=== PATIENT | female | born 2005 | race African-American/Black ===

== ENCOUNTER 2023-11-21 17:03 | Inpatient (IN) ==
--- NOTE | 2023-11-21 17:16 | Emergency Department Note ---
Impression & Plan Suicide gesture, Alcohol intoxication, Metabolic acidosis, Acute respiratory alkalosis, Drug overdose, intentional ED Provider Note NAME: ANNELISE ZAMBRANO AGE: 18 SEX: F : 2005 ARRIVES VIA: Ambulance INFORMANT: EMS, the police ED PROVIDER(S): Brnedan West DO CHIEF COMPLAINT: Altered mental status HPI: The patient is a 18-year-old female who presented to the emergency department for suicide attempt. The patient was found with a note stating her intentions to harm herself. She indicated that she had taken her Prozac as well as drank a significant amount of alcohol. Prior to arrival the patient was treated with IM Ativan because she was having episodes of tonic-clonic activity not seizure related. The patient would not answer any questions. I am unable to assess orientation at this time. I am unable to assess intent at this time. Additional history was obtained from the prehospital personnel who spoke to the patient's significant other ROS: See above HPI for pertinent positives & negatives. A total of 10 systems reviewed and were otherwise negative. PAST MEDICAL HISTORY: See Below PAST SURGICAL HISTORY: See Below FAMILY HISTORY: See Below SOCIAL HISTORY: See Below HOME MEDICATIONS: See Below ALLERGIES: See Below VITALS: See Below PHYSICAL EXAMINATION: GENERAL: The patient is not answering questions. She is lying on the bed and has intermittent episodes of " flopping around" EYES: The conjunctivae are clear. The pupils are round and reactive. EARS, NOSE, MOUTH AND THROAT: The nose is without any evidence of any deformity. NECK: The neck is nontender and supple. RESPIRATORY: Normal respiratory effort is noted there is no evidence of wheezing rhonchi or rales CARDIOVASCULAR: Regular rate and rhythm noted there no murmurs rubs or gallops normal S1 normal S2. GASTROINTESTINAL: The abdomen is soft. Abdomen is nontender. MUSCULOSKELETAL/EXTREMITIES: There is no evidence of gross deformity full range of motion is noted in the hips and shoulders. SKIN: There is no obvious evidence of any rash. There are no petechiae, pallor or cyanosis noted. NEUROLOGIC: Patient does not follow commands. She does not respond to verbal commands. She does localize pressure. Patellar tendon reflexes are 2+ bilaterally. PSYCH: Unable to assess at this time MEDICAL DECISION MAKING: The patient is a 18-year-old female who presented to the emergency department after a suicidal gesture. The patient is not usually compliant with her medications. It is possible she took multiple doses of 20 mg Prozac. The bottle was filled on October 08, 2023. There were 40 tablets left. It does not appear that she took them appropriately so there could be more than 6 tablets ingested this evening. The patient also drank alcohol. She left a suicide note indicating her intentions to harm herself. The patient was treated with IV fluids in the emergency department. She was also treated with IV Ativan. Her condition was discussed with the [facility]. They recommended continued IV Ativan as long as she was exhibiting signs of psychomotor agitation. There is no obvious seizure but she did keep having psychomotor agitation. She got Ativan prior to arrival as well as in the emergency department. I discussed patient's laboratory and radiographic studies with the on-call [facility] hospitalist. They have agreed to evaluate the patient in the emergency department for further management and disposition. Triage Nursing notes reviewed. Prior medical records reviewed Vital Signs: reviewed and remarkable for tachycardia. Differential diagnosis: Overdose, toxicologic, infection, hypoglycemia, electrolyte abnormalities, cardiac sources, intracerebral event, neurologic, trauma, as well as other pathologies. ER treatment provided: See below Diagnostics interpreted by me: ECG: EKG was obtained in the emergency department. My interpretation is sinus tachycardia at 119 bpm. Poor baseline was noted. There is no ectopy. QTc was 410 ms. QRS duration is 86 ms. Cardiac Monitoring: An order was placed for continuous cardiac monitoring. The monitor shows a rate of 104 bpm with sinus tachycardia Laboratory studies: As stated above and show below. Imaging studies: See below. Radiographic imaging was reviewed by myself Consultation(s): The patient's case was discussed with the Poison Control Center. They recommend benzodiazepines to treat tachycardia. I discussed this case with Dr Ramesh who was commissioned sales associate for the [place] [facility] group ED COURSE: Procedures: none Critical Care: I have personally spent greater than 55 minutes of critical care time in the direct management of this patient. This includes bedside care, interpretation of diagnostic studies, and testing, discussion with consultants, patient, and family members, and other required patient management activities. This 55 minutes is in excess of all separately billable procedures. Past Med/Surg History Social History Smoking Status: Unknown if ever smoked Preferred Language: Thai Allergies Allergies Allergy/AdvReac Type Severity Reaction Status Date / Time No Known Allergies Allergy Verified 11/21/23 18:18 Home Meds Home Medications Medication Instructions Recorded Confirmed fluoxetine 10 mg tablet 0 mg PO DAILY 11/21/23 11/21/23 Results & Data (ED) Vital Signs Vital Signs - 24 hr 11/21/23 17:15 11/21/23 17:26 11/21/23 17:30 Temperature 37.8 C H Temperature Source Rectal Pulse Rate 96 H 131 H 127 H Pulse Rate from SpO2 Sensor 129 H Respiratory Rate 23 21 Respiratory Effort / Characteristics Non-Labored Spontaneous Respiratory Depth Normal Blood Pressure 128/81 111/65 Blood Pressure Mean 96 80 Pulse Oximetry 97 94 Oxygen Delivery Method Room Air Room Air Sepsis Recent Fever Within 48 Hours No Sepsis New/Unexplained Change in Mental Status N/A Sepsis Action Taken by Nursing No Action Required 11/21/23 17:57 11/21/23 18:00 11/21/23 18:00 Temperature Temperature Source Pulse Rate 113 H 115 H Pulse Rate from SpO2 Sensor 111 H 119 H Respiratory Rate 24 24 Respiratory Effort / Characteristics Respiratory Depth Blood Pressure 108/62 95/44 L 95/44 L Blood Pressure Mean 77 61 67 Pulse Oximetry 99 96 Oxygen Delivery Method Room Air Room Air Sepsis Recent Fever Within 48 Hours Sepsis New/Unexplained Change in Mental Status Sepsis Action Taken by Nursing 11/21/23 18:15 11/21/23 18:30 11/21/23 18:45 Temperature Temperature Source Pulse Rate 104 H 114 H 96 H Pulse Rate from SpO2 Sensor 104 H 113 H 97 H Respiratory Rate 17 24 17 Respiratory Effort / Characteristics Respiratory Depth Blood Pressure 101/61 99/65 L 107/62 Blood Pressure Mean 74 76 77 Pulse Oximetry 98 96 99 Oxygen Delivery Method Room Air Room Air Room Air Sepsis Recent Fever Within 48 Hours Sepsis New/Unexplained Change in Mental Status Sepsis Action Taken by Nursing 11/21/23 19:00 11/21/23 19:16 11/21/23 19:30 Temperature 37.2 C Temperature Source Oral Pulse Rate 103 H 100 H Pulse Rate from SpO2 Sensor 98 H Respiratory Rate 21 22 Respiratory Effort / Characteristics Respiratory Depth Blood Pressure 112/57 L 99/59 L Blood Pressure Mean 69 71 Pulse Oximetry 100 99 Oxygen Delivery Method Room Air Room Air Sepsis Recent Fever Within 48 Hours Sepsis New/Unexplained Change in Mental Status Sepsis Action Taken by Retirement Medications Current Medication List: was personally reviewed by [place] Laboratory Data Attestation: I reviewed the patient's lab results. 11/21/23 17:10 11/21/23 17:10 Lab Results 11/21/23 11/21/23 11/21/23 Range/Units 17:10 17:12 17:19 WBC 7.48 (4.8-10.8) K/ul RBC 4.84 (4.20-5.40) M/uL Hgb 12.2 (12.0-16.0) g/dl POC Hgb 13.3 (12.0-16.0) g/dl Hct 38.4 (37.0-47.0) % POC Hct 39 (37-47) % MCV 79.3 L (80.0-100.0) fL MCH 25.2 (25.0-34.0) pg MCHC 31.8 L (32.0-36.0) g/dL RDW Std Deviation 42.0 (36.4-46.3) fL RDW Coeff of Kim 14.6 H (11.5-14.5) % Plt Count 373 (130-400) K/uL MPV 10.1 (9.4-12.4) fL Immature Gran % (Auto) 0.3 % Neut % (Auto) 63.6 % Lymph % (Auto) 27.7 % [place] % (Auto) 7.4 % Eos % (Auto) 0.5 % Baso % (Auto) 0.5 % Neut # (Auto) 4.76 (1.40-6.50) K/uL Lymph # (Auto) 2.07 (1.20-3.40) K/uL [place] # (Auto) 0.55 (0.11-0.59) K/uL Eos # (Auto) 0.04 (0.00-0.50) K/uL Baso # (Auto) 0.04 (0.00-0.20) K/uL Immature Gran # (Auto) 0.02 (0.01-0.20) K/uL PT 11.4 (9.0-12.0) Seconds INR 1.0 (0.9-1.1) APTT 27 (21-31) Seconds PTT Ratio 1.0 ABG pH (7.35-7.45) ABG pCO2 (35-46) mmHg ABG pO2 (80-95) mmHg ABG HCO3 (19-24) mmol/L ABG O2 Saturation (90-95) % ABG Base Excess (-9-1.8) mEq/L Aro[place] Test (Pos) Oxygen Given POC Sodium 136 (135-144) mmol/L Sodium 133 L (136-145) mmol/L POC Potassium 3.3 (3.3-5.0) mmol/L Potassium 3.3 L (3.5-5.1) mmol/L POC Chloride 103 (101-112) mmol/L Chloride 102 (98-107) mmol/L Carbon Dioxide 14 L (21-32) mmol/L POC Total CO2 15 L (24-31) mmol/L Anion Gap 17 H (3-11) POC Anion Gap 23.0 (16-25) mmol/L POC BUN 9 (7-18) mg/dl BUN 11 (6-23) mg/dl Creatinine 0.71 (0.6-1.2) mg/dl POC Creatinine 0.9 mg/dl Est Cr Clr Drug Dosing 97.8 ml/min Est GFR ( Amer) 142.1 ml/min Est GFR (Non-Af Amer) 122.6 ml/min BUN/Creatinine Ratio 15.5 (10-20) Glucose 166 H (70-99(Fasting)) mg/dl POC Glucose (other) 172 H (70-99) mg/dl Lactate 8.5 H* (0.4-2.0) mmol/L Calcium 9.5 (8.6-10.3) mg/dl POC Ioniz Calcium Kristyn 1.20 mmol/l Magnesium 2.2 (1.7-2.4) mg/dl Total Bilirubin 0.6 (0.2-1.0) mg/dl AST 12 L (13-39) U/L ALT 8 (7-52) U/L Alkaline Phosphatase 56 (34-104) U/L Total Creatine Kinase 63 (26-192) U/L Troponin I High Sens < 2.3 (0-14) pg/ml Total Protein 8.2 (6.0-8.3) gm/dl Albumin 4.9 (3.4-5.0) gm/dl Globulin 3.3 (2.5-4.0) gm/dl Albumin/Globulin Ratio 1.5 (0.9-2) Lipase 7 L (11-82) U/L HCG, Qual Negative (Negative) Urine Color Yellow Urine Appearance Clear (Clear) Urine pH 6.0 (4.5-7.5) Ur Specific [place] 1.018 (1.000-1.030) Urine Protein Negative (Negative) Urine Glucose (UA) 2+ H (Negative) Urine Ketones 1+ H (Negative) Urine Blood Negative (Negative) Urine Nitrite Negative (Negative) Urine Bilirubin Negative (Negative) Urine Urobilinogen Negative (Negative) Ur Leukocyte Esterase Trace H (Negative) Urine WBC (Auto) 1-5 (0-5) /hpf Urine RBC (Auto) 0-4 (0-4) /hpf U Hyaline Cast (Auto) 1-5 (0-5) /lpf U Epithel Cells (Auto) >30 H (0-5) /lpf Urine Bacteria (Auto) Negative (Negative) Salicylates < 3.0 L (3.0-30) mg/dl Urine Opiates Screen Neg (Neg) Ur Methadone, Qual Neg (Neg) Acetaminophen < 3 L (10-30) ug/ml Urine Barbiturates Neg (Neg) Ur Phencyclidine (PCP) Neg (Neg) U Amphetamin/Meth Scrn Neg (Neg) MDMA (Ecstasy) Screen Neg (Neg) U Benzodiazepines Scrn Neg (Neg) Ur Cocaine Metabolite Neg (Neg) U Marijuana (THC) Screen Neg (Neg) Ethyl Alcohol mg/dL 109.6 H (<10.0) mg/dl SARS-CoV-2, RNA, NAAT (NEGATIVE) 11/21/23 11/21/23 11/21/23 Range/Units 17:28 17:35 19:22 WBC (4.8-10.8) K/ul RBC (4.20-5.40) M/uL Hgb (12.0-16.0) g/dl POC Hgb (12.0-16.0) g/dl Hct (37.0-47.0) % POC Hct (37-47) % MCV (80.0-100.0) fL MCH (25.0-34.0) pg MCHC (32.0-36.0) g/dL RDW Std Deviation (36.4-46.3) fL RDW Coeff of Kim (11.5-14.5) % Plt Count (130-400) K/uL MPV (9.4-12.4) fL Immature Gran % (Auto) % Neut % (Auto) % Lymph % (Auto) % [place] % (Auto) % Eos % (Auto) % Baso % (Auto) % Neut # (Auto) (1.40-6.50) K/uL Lymph # (Auto) (1.20-3.40) K/uL [place] # (Auto) (0.11-0.59) K/uL Eos # (Auto) (0.00-0.50) K/uL Baso # (Auto) (0.00-0.20) K/uL Immature Gran # (Auto) (0.01-0.20) K/uL PT (9.0-12.0) Seconds INR (0.9-1.1) APTT (21-31) Seconds PTT Ratio ABG pH 7.33 L (7.35-7.45) ABG pCO2 25 L (35-46) mmHg ABG pO2 108 H (80-95) mmHg ABG HCO3 13 L (19-24) mmol/L ABG O2 Saturation 98.5 H (90-95) % ABG Base Excess -10.9 L (-9-1.8) mEq/L Aroldo Test Pos (Pos) Oxygen Given ROOM AIR POC Sodium (135-144) mmol/L Sodium (136-145) mmol/L POC Potassium (3.3-5.0) mmol/L Potassium (3.5-5.1) mmol/L POC Chloride (101-112) mmol/L Chloride (98-107) mmol/L Carbon Dioxide (21-32) mmol/L POC Total CO2 (24-31) mmol/L Anion Gap (3-11) POC Anion Gap (16-25) mmol/L POC BUN (7-18) mg/dl BUN (6-23) mg/dl Creatinine (0.6-1.2) mg/dl POC Creatinine mg/dl Est Cr Clr Drug Dosing ml/min Est GFR ( Amer) ml/min Est GFR (Non-Af Amer) ml/min BUN/Creatinine Ratio (10-20) Glucose (70-99(Fasting)) mg/dl POC Glucose (other) (70-99) mg/dl Lactate 4.3 H* (0.4-2.0) mmol/L Calcium (8.6-10.3) mg/dl POC Ioniz Calcium Kristyn mmol/l Magnesium (1.7-2.4) mg/dl Total Bilirubin (0.2-1.0) mg/dl AST (13-39) U/L ALT (7-52) U/L Alkaline Phosphatase (34-104) U/L Total Creatine Kinase (26-192) U/L Troponin I High Sens (0-14) pg/ml Total Protein (6.0-8.3) gm/dl Albumin (3.4-5.0) gm/dl Globulin (2.5-4.0) gm/dl Albumin/Globulin Ratio (0.9-2) Lipase (11-82) U/L HCG, Qual (Negative) Urine Color Urine Appearance (Clear) Urine pH (4.5-7.5) Ur Specific [place] (1.000-1.030) Urine Protein (Negative) Urine Glucose (UA) (Negative) Urine Ketones (Negative) Urine Blood (Negative) Urine Nitrite (Negative) Urine Bilirubin (Negative) Urine Urobilinogen (Negative) Ur Leukocyte Esterase (Negative) Urine WBC (Auto) (0-5) /hpf Urine RBC (Auto) (0-4) /hpf U Hyaline Cast (Auto) (0-5) /lpf U Epithel Cells (Auto) (0-5) /lpf Urine Bacteria (Auto) (Negative) Salicylates (3.0-30) mg/dl Urine Opiates Screen (Neg) Ur Methadone, Qual (Neg) Acetaminophen (10-30) ug/ml Urine Barbiturates (Neg) Ur Phencyclidine (PCP) (Neg) U Amphetamin/Meth Scrn (Neg) MDMA (Ecstasy) Screen (Neg) U Benzodiazepines Scrn (Neg) Ur Cocaine Metabolite (Neg) U Marijuana (THC) Screen (Neg) Ethyl Alcohol mg/dL (<10.0) mg/dl SARS-CoV-2, RNA, NAAT NEGATIVE (NEGATIVE) Administered Medications Lactated Ringer's (Lr) 1,000 mls @ 999 mls/hr IV .Q1H1M ONE Stop: 11/21/23 20:30 Last Infusion: 11/21/23 19:40 Dose: 999 mls/hr Documented By: Admin: 11/21/23 19:40 Dose: 999 mls/hr Documented By: NALINI Discontinued Medications Sodium Chloride (Nss) 1,000 mls @ 999 mls/hr IV .Q1H1M CORI Stop: 11/21/23 18:15 Last Infusion: 11/21/23 18:22 Dose: Infused Documented By: Admin: 11/21/23 17:23 Dose: 999 mls/hr Documented By: KIARRA Sodium Chloride (Nss) 1,000 mls @ 999 mls/hr IV .Q1H1M ONE Stop: 11/21/23 19:10 Last Infusion: 11/21/23 19:11 Dose: Infused Documented By: Infusion: 11/21/23 18:27 Dose: 0 mls/hr Documented By: Admin: 11/21/23 18:14 Dose: 999 mls/hr Documented By: KIARRA Lactated Ringer's (Lr) 1,000 mls @ 999 mls/hr IV .Q1H1M ONE Stop: 11/21/23 19:20 Last Infusion: 11/21/23 19:16 Dose: Infused Documented By: Admin: 11/21/23 18:32 Dose: 999 mls/hr Documented By: KIARRA Lorazepam (Lorazepam 1 Mg/1 Ml Syr Ed Inj Use) 1 mg IV ONE STA Stop: 11/21/23 17:38 Last Admin: 11/21/23 17:45 Dose: 1 mg Documented By: KIARRA Imaging Data Attestation: I personally reviewed and interpreted this imaging study as follows: My Impression: 1 view chest x-ray was obtained in the emergency department. My interpretation is no free air or definite infiltrate, final report below Radiologist's Impression: Chest X-Ray 11/21/23 17:08 XR chest 1V portable HISTORY: Altered mental status. COMPARISON: None. FINDINGS: The lungs are clear. Cardiac silhouette is normal in size. No pleural effusions. No pneumothorax. IMPRESSION: No acute process. ACT 112: Negative or not required by law. Electronically signed by: Luis Rangel M.D. 11/21/2023 5:33 PM Discharge Plan Visit Data Chief Complaint: Overdose (Intentional) ED Provider: Brendan West Discharge Problem: Suicide gesture, Alcohol intoxication, Metabolic acidosis, Acute respiratory alkalosis, Drug overdose, intentional Patient Disposition: Being Evaluated by Hospitalist Forms Stand Alone Forms: My [facility], Suicide Prevention Resources Prescriptions Prescriptions: No Action fluoxetine [Prozac] 10 mg Tablet 0 mg PO DAILY Rx Instructions: PT UNSURE OF STRENGTH, UNABLE TO VERIFY. FROM EMS--"TOOK POSSIBLY 6 TABS". Referrals Referrals: PCP,NO [Primary Care Provider] - Discharge Problem: Suicide gesture Qualifiers: Encounter type: initial encounter Qualified Code(s): X83.8XXA - Intentional self-harm by other specified means, initial encounter Alcohol intoxication Qualifiers: Complication of substance-induced condition: uncomplicated Qualified Code(s): F 10.920 - Alcohol use, unspecified with intoxication, uncomplicated Drug overdose, intentional Qualifiers: Encounter type: initial encounter Qualified Code(s): T50.902A - Poisoning by unspecified drugs, medicaments and biological substances, intentional self-harm, initial encounter
[2023-11-21] MEDS: SODIUM CHLORIDE 0.9% 1,000 ML IV SCH (17:23)
[2023-11-21 17:25] LABS: iSTAT Creatinine 0.9 mg/dl; iSTAT Hemoglobin 13.3 g/dl (12.0-16.0); iSTAT Ionized Calcium 1.2 mmol/l; iSTAT Potassium 3.3 mmol/L (3.3-5.0)
[2023-11-21 17:26] LABS: Basophils # (auto) 0.04 K/uL (0.00-0.20); Basophils % (auto) 0.5 %; Eosinophils # (auto) 0.04 K/uL (0.00-0.50); Eosinophils % (auto) 0.5 %; Hematocrit (blood only) 38.4 % (37.0-47.0); Hemoglobin 12.2 g/dl (12.0-16.0); Immature Granulocytes # (auto) 0.02 K/uL (0.01-0.20); Immature Granulocytes % (auto) 0.3 %; Lymphocytes # (auto) 2.07 K/uL (1.20-3.40); Lymphocytes % (auto) 27.7 %; Mean Corpuscular Hemoglobin 25.2 pg (25.0-34.0); Mean Corpuscular Hgb Conc 31.8 g/dL (32.0-36.0); Mean Corpuscular Volume 79.3 fL (80.0-100.0); Mean Platelet Volume 10.1 fL (9.4-12.4); Monocytes # (auto) 0.55 K/uL (0.11-0.59); Monocytes % (auto) 7.4 %; Neutrophils # (auto) 4.76 K/uL (1.40-6.50); Neutrophils % (auto) 63.6 %; Platelet Count 373 K/uL (130-400); RDW Coefficient of Variation 14.6 % (11.5-14.5); Red Blood Count 4.84 M/uL (4.20-5.40); White Blood Count 7.48 K/ul (4.8-10.8)
[2023-11-21 17:31] LABS: Appearance Urine Clear (Clear); Bacteria Urine Automated Negative (Negative); Bilirubin Urine Negative (Negative); Blood Urine Negative (Negative); Color Urine Yellow; Epithelial Cell Urine Auto >30 /lpf (0-5); Glucose Urine UA 2+ (Negative); Ketones Urine 1+ (Negative); Leukocyte Esterase Urine Trace (Negative); Nitrite Urine Negative (Negative); Protein Urine Negative (Negative); RBC Urine Automated 0-4 /hpf (0-4); Specific Gravity Urine 1.018 (1.000-1.030); Urobilinogen Urine Negative (Negative)
--- NOTE | 2023-11-21 17:34 | XRay Report ---
XR chest 1V portable HISTORY: Altered mental status. COMPARISON: None. FINDINGS: The lungs are clear. Cardiac silhouette is normal in size. No pleural effusions. No pneumot horax. IMPRESSION: No acute process. ACT 112: Negative or not required by law. Electronically signed by: Luis Rangel M.D. 11/21/2023 5:33 PM
[2023-11-21 17:38] LABS: Pregnancy Test, Serum Negative (Negative)
[2023-11-21 17:41] LABS: Acetaminophen < 3 ug/ml (10-30); Salicylate < 3.0 mg/dl (3.0-30)
[2023-11-21 17:44] LABS: Alanine Aminotransferase 8 U/L (7-52); Albumin Globulin Ratio 1.5 (0.9-2); Albumin Level 4.9 gm/dl (3.4-5.0); Alkaline Phosphatase 56 U/L (34-104); Anion Gap 17 (3-11); Aspartate Aminotransferase 12 U/L (13-39); BUN Creatinine Ratio 15.5 (10-20); Bilirubin,Total 0.6 mg/dl (0.2-1.0); Blood Urea Nitrogen 11 mg/dl (6-23); Calcium 9.5 mg/dl (8.6-10.3); Carbon Dioxide 14 mmol/L (21-32); Chloride 102 mmol/L (98-107); Creatine Kinase 63 U/L (26-192); Creatinine Clr Calc Pharmacy 97.8 ml/min; Est GFR (African American) 142.1 ml/min; Est GFR (Non-African American) 122.6 ml/min; Globulin 3.3 gm/dl (2.5-4.0); Glucose 166 mg/dl (70-99(Fasting)); Lipase 7 U/L (11-82); Magnesium 2.2 mg/dl (1.7-2.4); Potassium 3.3 mmol/L (3.5-5.1); Sodium 133 mmol/L (136-145); Total Protein 8.2 gm/dl (6.0-8.3)
[2023-11-21 17:45] LABS: Base Excess ABG -10.9 mEq/L (-9-1.8); HCO3 ABG 13 mmol/L (19-24); Oxygen Saturation ABG 98.5 % (90-95); PCO2 ABG 25 mmHg (35-46); PO2 ABG 108 mmHg (80-95); pH ABG 7.33 (7.35-7.45)
[2023-11-21] MEDS: LORazepam 1 MG/1 ML SYR ED Inj Use IV STA (17:45)
[2023-11-21 17:46] LABS: Allen Test Pos (Pos)
[2023-11-21 17:50] LABS: Troponin I High Sensitivity < 2.3 pg/ml (0-14)
[2023-11-21 17:54] LABS: Partial Thromboplastin Time 27 Seconds (21-31); Prothrombin Time 11.4 Seconds (9.0-12.0)
[2023-11-21 17:57] LABS: Amphetamines+Metham, Urine Neg (Neg); Barbiturates, Urine Neg (Neg); Benzodiazepine, Urine Neg (Neg); Cocaine, Urine Neg (Neg); MDMA (Ecstacy), Urine Neg (Neg); Marijuana, Urine Neg (Neg); Methadone, Urine Neg (Neg); Opiate, Urine Neg (Neg); Phencyclidine, Urine Neg (Neg)
[2023-11-21] MEDS: SODIUM CHLORIDE 0.9% 1,000 ML IV ONE (18:14)
[2023-11-21] MEDS: LACTATED RINGER'S 1,000 ML IV ONE ×2 (18:32→19:40)
[2023-11-21] MEDS ORDERED: Ativan IV Alcohol Withdrawal--Active Protocol IV PRN (19:40)
[2023-11-21] MEDS ORDERED: LORazepam 3 MG in SYRINGE 1.5 ML IV PRN (19:40)
--- NOTE | 2023-11-21 19:58 | History & Physical Report ---
Date of Service November 21, 2023 Assessment & Plan (1) Drug overdose, intentional: Plan: -Admit to the PCU on tele and pulse oximetry -Currently stable and non-toxic appearing -Presented to the ED via EMS after her boyfriend found her unconscious with a suicide note next to her. -Concerns that she took up to 40-50 tabs of prozac and an unknown amount of alcohol -Patient will need to be monitored closely moving forward for signs/symptoms so Serotonin syndrome -Continue to monitor on tele, will obtain ECG on admission -Will start AWSS protocol to be used to dose ativan for her psychomotor agitation -Currently receiving her 2nd liter of LR >Patient has had a total of 3L IV fluid since arrival -Continue maintenance IV fluids until patient can safely eat/drink -Suicide precautions, Seizure precautions -Strict NPO until she is alert enough to safely eat -AM CBC, CMP, mag, PT/INR (2) Metabolic acidosis: Plan: -Patient was found to have an elevated anion gap metabolic acidosis with r espiratory alkalosis -Likely due to her significant lactate elevation of 8 on arrival -Repeat lactate down to 4.3 after receiving 3L IV fluids in the ED -Currently receiving her 2nd liter of LR on admission -Will continue light maintenance fluids after until lactate is WNL -Will repeat another lactate in 2 hours (3) Suicide gesture: Plan: -Suicide precautions ordered -Psychiatry consulted (4) Alcohol intoxication: Plan: -Alcohol level of 109 on arrival -Unsure of her drinking history, will need to monitor for withdrawal -Will start AWSS protocol for now to treat side effects of overdose and any possible alcohol withdrawal (5) Hypokalemia: Plan: -Potassium of 3.3 on arrival -Mag is WNL -Will give 3 bags of 10 meq IV KCL now -Continue to monitor on tele -Monitor am potassium level Plan The patient was discussed with Dr. Loaiza at the time fo the admission History of Present Illness Chief Complaint: Intentional overdose Primary Care Provider: NO PCP Emilia is a 18 year old female with a PMH significant for Depression who presented to the [facility] via EMS on 11/21/23 for reported intentional overdose of Prozac and alcohol intoxication. Per the ED staff, the patient was reported to have not been taking her Prozac consistently. Police found her bottle which was initially filled in September for 90 tablets. The patient had 40 tablets left when they were counted on scene. It is unknown how much alcohol she ingested. The patient received 1mg IV ativan in route by EMS. On arrival she was noted to be tachycardic with with HR in the 130's, mildly hypotensive at 95/54, but otherwise stable. Labs were significant for an ABG pH of 7.33, pCO2 of 25, pO2 of 108, bicarb level of 13, lactate of 8, AG of 17 with bicarb of 14, and alcohol level of 109. Chest xray was negative for acute findings. The rest of her urine drug panel including salicylate and acetaminophen levels were negative. The patient was give a total of 2L NSS, 1L LR, and 1 mg IV ativan prior to admission. At the time of the exam the patient was lying in bed, still having intermittent jerking movements of the upper and lower extremities. She will open her eyes when you speak to her and follow commands but will not speak. There was no family of friends in the room during my exam. The ED staff spoke with Poison control who recommend continued monitoring on telemetry, IV fluid hydration, and use of benzodiazepines for agitation/psychomotor agitation. Please refer to Dr. Loaiza's attestation for any changes to the treatment plan Allergies Allergy/AdvReac Type Severity Reaction Status Date / Time No Known Allergies Allergy Verified 11/21/23 18:18 Home Medications Medication Instructions Recorded Confirmed Type fluoxetine 10 mg tablet 0 mg PO DAILY 11/21/23 11/21/23 History Past Med/Surg History Medical History (Updated 11/22/23 @ 16:19 by Roxy Gonzalez PA-C) Suicide gesture Social History Smoking Status: Unknown if ever smoked Second Hand Exposure: No; Do You Dip or Chew Tobacco: No; Tobacco Cessation Education Requested by Patient: No Hx Alcohol Use: Yes Alcohol type: beer, wine and hard liquor Hx Substance Use: No Preferred Language: Canadian Communication Ability: Effective Mechanical Service Representative Required: No Beliefs That Will Affect Care: None Current Living Situation: Family Other Information That Helps Us Care for You: No Feels Safe at Home: Yes Safety Concerns: Feels Safe At This Time Assistive Devices: None Physical Exam Physical Exam: Physical Exam: General: In no acute distress, appears fatigued but non-toxic HEENT: Normocephalic, atraumatic, no scleral icterus, pupils around round, symmetrical, and reactive to light, dry mucus membranes, trachea midline, no thyromegaly Chest/Pulm: No respiratory distress, symmetrical chest expansion, clear breat h sounds throughout Cardiac: tachycardic rate, regular rhythm, no murmurs noted Abdomen: Negative for ascites and bruising, normoactive bowel sounds, soft, patient was without grimacing or guarding during abdominal palpation Musculoskeletal: Patient moves lower extremities voluntarily when asked, no acute trauma on exam, intermittent muscular jerking noted Extremities: Radial, dorsalis pedis, and posterior tibial pulses are intact and symmetrical, no edema noted in the BL LE's Skin: Warm, dry, no rashes , lesions, or scars noted Neuro: Alert but will not answer orientation questions, no focal defects, patient will not cooperate with CN testing but BL pupils are round, symmetrical and reactive to light, patient does have ocular clonus BL, no facial droop, tongue/uvula deviation, moves extremities voluntarily but will also have in termittent, involuntary muscle twitching, positive clonus in the BL lower extremities, no tremors noted Psych: No acute distress, not currently agitated or aggressive Results & Data Results & Data Vital Signs (Past 12 Hours) Vital Signs Temp Pulse Resp BP Pulse Ox O2 Del Method 11/21/23 19:30 37.2 C 11/21/23 19:16 100 H 22 99/59 L 99 Room Air 11/21/23 19:00 103 H 21 112/57 L 100 Room Air 11/21/23 18:45 96 H 17 107/62 99 Room Air 11/21/23 18:30 114 H 24 99/65 L 96 Room Air 11/21/23 18:15 104 H 17 101/61 98 Room Air 11/21/23 18:00 95/44 L 11/21/23 18:00 115 H 24 95/44 L 96 Room Air 11/21/23 17:57 113 H 24 108/62 99 Room Air 11/21/23 17:30 127 H 21 111/65 94 Room Air 11/21/23 17:26 131 H 11/21/23 17:15 37.8 C H 96 H 23 128/81 97 Room Air Laboratory Results Abnormal lab results 11/21/23 11/21/23 11/21/23 Range/Units 17:10 17:12 17:19 MCV 79.3 L (80.0-100.0) fL MCHC 31.8 L (32.0-36.0) g/dL RDW Coeff of Kim 14.6 H (11.5-14.5) % ABG pH (7.35-7.45) ABG pCO2 (35-46) mmHg ABG pO2 (80-95) mmHg ABG HCO3 (19-24) mmol/L ABG O2 Saturation (90-95) % ABG Base Excess (-9-1.8) mEq/L Sodium 133 L (136-145) mmol/L Potassium 3.3 L (3.5-5.1) mmol/L Carbon Dioxide 14 L (21-32) mmol/L POC Total CO2 15 L (24-31) mmol/L Anion Gap 17 H (3-11) Glucose 166 H (70-99(Fasting)) mg/dl POC Glucose (other) 172 H (70-99) mg/dl Lactate 8.5 H* (0.4-2.0) mmol/L AST 12 L (13-39) U/L Lipase 7 L (11-82) U/L Urine Glucose (UA) 2+ H (Negative) Urine Ketones 1+ H (Negative) Ur Leukocyte Esterase Trace H (Negative) U Epithel Cells (Auto) >30 H (0-5) /lpf Salicylates < 3.0 L (3.0-30) mg/dl Acetaminophen < 3 L (10-30) ug/ml Ethyl Alcohol mg/dL 109.6 H (<10.0) mg/dl 11/21/23 11/21/23 Range/Units 17:35 19:22 MCV (80.0-100.0) fL MCHC (32.0-36.0) g/dL RDW Coeff of Kim (11.5-14.5) % ABG pH 7.33 L (7.35-7.45) ABG pCO2 25 L (35-46) mmHg ABG pO2 108 H (80-95) mmHg ABG HCO3 13 L (19-24) mmol/L ABG O2 Saturation 98.5 H (90-95) % ABG Base Excess -10.9 L (-9-1.8) mEq/L Sodium (136-145) mmol/L Potassium (3.5-5.1) mmol/L Carbon Dioxide (21-32) mmol/L POC Total CO2 (24-31) mmol/L Anion Gap (3-11) Glucose (70-99(Fasting)) mg/dl POC Glucose (other) (70-99) mg/dl Lactate 4.3 H* (0.4-2.0) mmol/L AST (13-39) U/L Lipase (11-82) U/L Urine Glucose (UA) (Negative) Urine Ketones (Negative) Ur Leukocyte Esterase (Negative) U Epithel Cells (Auto) (0-5) /lpf Salicylates (3.0-30) mg/dl Acetaminophen (10-30) ug/ml Ethyl Alcohol mg/dL (<10.0) mg/dl Diagnostic Findings Abnormal lab results 11/21/23 11/21/23 11/21/23 Range/Units 17:10 17:12 17:19 MCV 79.3 L (80.0-100.0) fL MCHC 31.8 L (32.0-36.0) g/dL RDW Coeff of Kim 14.6 H (11.5-14.5) % ABG pH (7.35-7.45) ABG pCO2 (35-46) mmHg ABG pO2 (80-95) mmHg ABG HCO3 (19-24) mmol/L ABG O2 Saturation (90-95) % ABG Base Excess (-9-1.8) mEq/L Sodium 133 L (136-145) mmol/L Potassium 3.3 L (3.5-5.1) mmol/L Carbon Dioxide 14 L (21-32) mmol/L POC Total CO2 15 L (24-31) mmol/L Anion Gap 17 H (3-11) Glucose 166 H (70-99(Fasting)) mg/dl POC Glucose (other) 172 H (70-99) mg/dl Lactate 8.5 H* (0.4-2.0) mmol/L AST 12 L (13-39) U/L Lipase 7 L (11-82) U/L Urine Glucose (UA) 2+ H (Negative) Urine Ketones 1+ H (Negative) Ur Leukocyte Esterase Trace H (Negative) U Epithel Cells (Auto) >30 H (0-5) /lpf Salicylates < 3.0 L (3.0-30) mg/dl Acetaminophen < 3 L (10-30) ug/ml Ethyl Alcohol mg/dL 109.6 H (<10.0) mg/dl 11/21/23 11/21/23 Range/Units 17:35 19:22 MCV (80.0-100.0) fL MCHC (32.0-36.0) g/dL RDW Coeff of Kim (11.5-14.5) % ABG pH 7.33 L (7.35-7.45) ABG pCO2 25 L (35-46) mmHg ABG pO2 108 H (80-95) mmHg ABG HCO3 13 L (19-24) mmol/L ABG O2 Saturation 98.5 H (90-95) % ABG Base Excess -10.9 L (-9-1.8) mEq/L Sodium (136-145) mmol/L Potassium (3.5-5.1) mmol/L Carbon Dioxide (21-32) mmol/L POC Total CO2 (24-31) mmol/L Anion Gap (3-11) Glucose (70-99(Fasting)) mg/dl POC Glucose (other) (70-99) mg/dl Lactate 4.3 H* (0.4-2.0) mmol/L AST (13-39) U/L Lipase (11-82) U/L Urine Glucose (UA) (Negative) Urine Ketones (Negative) Ur Leukocyte Esterase (Negative) U Epithel Cells (Auto) (0-5) /lpf Salicylates (3.0-30) mg/dl Acetaminophen (10-30) ug/ml Ethyl Alcohol mg/dL (<10.0) mg/dl ECG Additional Comments: Will obtain at the time of the admission Code Status & VTE Plan Code Status Full code VTE Prophylaxis Plan VTE Prophylaxis will be ordered: Yes Supervising Physician Co-Signing Physician Notes Attending addendum: I have physically seen this patient, have supervised the ARMANDO's activities, and agree with the H&P unless as otherwise noted. Assessment and Plan: Intentional drug overdose/suicide gesture- Admitting to PCU Took excessive amounts of her Prozac, plus was drinking alcohol Alcohol level 109.6 on admission Main physical exam finding is intermittent twitching Has received 3 L IV fluids from the ED Suicide precautions One-on-one observation Follow serial CBC with differential, chemistry profile, magnesium and coagulation studies Consult psychiatry Alcohol intoxication- Alcohol level 109.6 AWSS protocol with IV Ativan, which should also help the intermittent tremors associated with Prozac/alcohol intake Hypokalemia- Potassium 3.3 on admission Replace with IV fluids and recheck laboratories in a.m. PG Care Time/CCT Total # of Minutes Spent Total Time Spent with Patient: Total time spent is greater than 50% in coordination of care (as documented) at patient's floor/unit and/or counseling patient: [place] [address] INT INP/OBS CARE 3/75MIN Patient Type New Medical Decision Making High Complexity Diagnoses Drug overdose, intentional T50.902A Encounter type: initial encounter Metabolic acidosis E87.20 Suicide gesture X83.8XXA Encounter type: initial encounter Alcohol intoxication F10.920 Complication of substance-induced condition: uncomplicated Hypokalemia E87.6 (1) Drug overdose, intentional Encounter type: initial encounter Qualified Code(s): T50.902A - Poisoning by unspecified drugs, medicaments and biological substances, intentional self-harm, initial encounter (3) Suicide gesture Encounter type: initial encounter Qualified Code(s): X83.8XXA - Intentional self-harm by other specified means, initial encounter (4) Alcohol intoxication Complication of substance-induced condition: uncomplicated Qualified Code(s): F10.920 - Alcohol use, unspecified with intoxication, uncomplicated
[2023-11-21] MEDS: POTASSIUM CHLORIDE / WTR 10 MEQ/100 ML PLCT IV SCH (20:58)
[2023-11-21] MEDS: LACTATED RINGER'S 1,000 ML IV SCH (20:58)
[2023-11-21] MEDS: LORazepam 2 MG in SYRINGE 1 ML IV PRN (20:58)
[2023-11-22 04:52] LABS: Basophils # (auto) 0.04 K/uL (0.00-0.20); Basophils % (auto) 0.8 %; Eosinophils # (auto) 0.05 K/uL (0.00-0.50); Hematocrit (blood only) 29.3 % (37.0-47.0); Hemoglobin 9.4 g/dl (12.0-16.0); Immature Granulocytes # (auto) 0.01 K/uL (0.01-0.20); Immature Granulocytes % (auto) 0.2 %; Lymphocytes # (auto) 1.49 K/uL (1.20-3.40); Lymphocytes % (auto) 28.7 %; Mean Corpuscular Hemoglobin 25.4 pg (25.0-34.0); Mean Corpuscular Hgb Conc 32.1 g/dL (32.0-36.0); Mean Corpuscular Volume 79.2 fL (80.0-100.0); Mean Platelet Volume 9.9 fL (9.4-12.4); Monocytes # (auto) 0.41 K/uL (0.11-0.59); Monocytes % (auto) 7.9 %; Neutrophils # (auto) 3.19 K/uL (1.40-6.50); Neutrophils % (auto) 61.4 %; Platelet Count 250 K/uL (130-400); RDW Coefficient of Variation 14.9 % (11.5-14.5); RDW Standard Deviation 42.5 fL (36.4-46.3); White Blood Count 5.19 K/ul (4.8-10.8)
[2023-11-22 05:07] LABS: Alanine Aminotransferase 5 U/L (7-52); Albumin Globulin Ratio 1.5 (0.9-2); Albumin Level 3.4 gm/dl (3.4-5.0); Alkaline Phosphatase 43 U/L (34-104); Anion Gap 3 (3-11); Aspartate Aminotransferase 9 U/L (13-39); BUN Creatinine Ratio 9.7 (10-20); Bilirubin,Total 0.3 mg/dl (0.2-1.0); Blood Urea Nitrogen 6 mg/dl (6-23); Calcium 8.2 mg/dl (8.6-10.3); Carbon Dioxide 23 mmol/L (21-32); Chloride 109 mmol/L (98-107); Est GFR (African American) > 150.0 ml/min; Est GFR (Non-African American) 129.8 ml/min; Globulin 2.3 gm/dl (2.5-4.0); Glucose 83 mg/dl (70-99(Fasting)); Magnesium 1.8 mg/dl (1.7-2.4); Potassium 4.1 mmol/L (3.5-5.1); Sodium 135 mmol/L (136-145); Total Protein 5.7 gm/dl (6.0-8.3)
[2023-11-22] MEDS: DESTROY THIS MEDICATION ONE (07:05)
--- NOTE | 2023-11-22 11:51 | Psychiatric Consultation ---
Date of Consultation November 22, 2023 Impression / Recommendations Impression This is a 18-year-old adopted female who has been under some significant stressors (see above). I do not know anything about family history because of her adopted status. Sounds like she has been having difficulty launching into adulthood and had a recent break-up with a boyfriend who has been cheating on her. She has a history of depression and had recently started fluoxetine and felt that it was somewhat helpful but had not reached its full effect probably. She came into our hospital on a mental health warrant by the police but is willing to sign in voluntarily to the psychiatric unit when she is medically stabilized. I believe the patient is still at very high risk of suicide and requires psychiatric hospitalization, but she is willing to come in voluntarily at this time. (1) Major depressive disorder, single episode, severe without psychotic features: (2) Suicide attempt by drug ingestion: (3) Alcohol use disorder: Plan 1. We will continue to follow the patient while she is being medically treated and stabilized. 2. Once she is medically stabilized, she will need to be admitted to a psychiatric hospital. She prefers to do that locally, but parents would prefer for her to be hospitalized locally. It is too early to know what will be available once she is medically stable. 3. We will not be restarting the fluoxetine right away and it is not clear if we will continue it or not. We will decide that later. For now, we will not use any psychiatric medications until she is been stable for a little while. 4. She understands that there is still work to be done and I encouraged her to take part in the therapeutic milieu on the psychiatric unit, attend groups and activities, maintain good hygiene, and try not to isolate. 5. Discharge planning will include outpatient medication management and individual therapy. Today I spent about 100 minutes on the case. This included meeting with the patient, meeting with parents, meeting with the roommate, discussing the case with AXEL Gonzalez, discussion with the mental health liaison, and documentation. Psych History Identifying Data Emilia is a 18 yo adopted AA female currently living in [place] in an apartment with 3 roommates. She was brought in emergently to the ED on the evening of 11/21/23 after an overdose of fluoxetine in a suicide attempt. Chief Complaint "I overdosed on pills." History of Present Illness Today I met with the patient and the parents. I also spoke with AXEL Gonzalez who is working with the patient medically. Patient tells me that she overdosed on her fluoxetine yesterday in the early afternoon. She is not sure exactly how many she took but it was "a lot." Physically, she is feeling somewhat better. She describes feeling a little bit dissociated and odd, but she has been able to get up and use the bathroom and is eating and drinking. She cannot identify initially that there was any big stress that caused the overdose. She lives here in [place] in an apartment with 3 roommates. 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 Later during the conversation, she revealed to me that she had a recent break-up with a boyfriend. They had initially broken up back in August and then were back together for a little while and then finally broke up about a week ago. Mother revealed later on that he had cheated on her as well and that she had felt somehow at fault. She says that she is sexually active but is using protection. She is not worried that she is . She is not involved in any organized activities or amish. She is doing online schooling through the [employer] studying business. She does have some supportive friends and family members. She has no major medical issue s and no legal issues going on. Parents bring up other stressors as well. She is adopted and -Citizen Of [place] living with a white family. That has been somewhat difficult for her. Parents feel that they have been pressuring her too much to move into adulthood. They also mention that she has been pretty isolative in her apartment and is not as close to her roommates that she would like to be. Patient says that her sleep has been poor with initial and middle insomnia. There is been no nightmares. Appetite is normal. She describes her mood is anxious. She denies anhedonia. Energy has been okay. She says her concentration is normal. She describes some guilt and feels like she is not doing enough for the people in her life. She does feel somewhat hopeless. She cannot really say what led to her overdose and it sounds like she was pretty much "on autopilot" and impulsively did this. She denies any homicidal thoughts. She has a history of self-harm back in high school but none recently. She denies any prior suicide attempts. There is no history of any trauma or abuse. She denies any auditory or visual hallucinations. No ideas of reference. She vapes nicotine and occasionally will drink alcohol, but it sounds like it is rare. She denies any marijuana use or any other illicit substance use. There is no history of any manic episodes. Past Psychiatric History Previous Psych History: She has a history of depression but no other past diagnoses that I am aware of. Outpatient Services: She was receiving the fluoxetine from an online provider. She currently does not have a therapist locally but has 1 where her family lives but has not been s eeing them lately. Previous Psych Admissions: None Past Medication Trials: Fluoxetine is the only medication she is ever been on and she started that in September this year. Allergies Allergy/AdvReac Type Severity Reaction Status Date / Time No Known Allergies Allergy Verified 11/21/23 18:18 Home Medications Medication Instructions Recorded Confirmed Type fluoxetine 10 mg tablet 0 mg PO DAILY 11/21/23 11/21/23 History Patient History Medical History (Updated 11/22/23 @ 12:15 by Judson Riley Jr, MD) Suicide gesture Social History Smoking Status: Unknown if ever smoked Second Hand Exposure: No; Do You Dip or Chew Tobacco: No; Tobacco Cessation Education Requested by Patient: No Hx Alcohol Use: Yes Alcohol type: beer, wine and hard liquor Hx Substance Use: No Preferred Language: Belgian Communication Ability: Effective Pinion Sorter Required: No Beliefs That Will Affect Care: None Current Living Situation: Family Other Information That Helps Us Care for You: No Feels Safe at Home: Yes Safety Concerns: Feels Safe At This Time Assistive Devices: None Physical Exam Psychiatric: Patient was alert and oriented x 3. She was clean and well-groomed wearing a hospital gown. Eye contact was fair. Speech was normal other than a vocal tic that she says is new since the overdose. Mood was "anxious." Affect was restricted. Thought process was logical and just a bit goal-directed. There was no evidence of any hallucinations or delusions. Patient denied any suicidal or homicidal thoughts. Memory was good; she knew her date of , the president of [facility], and the capital [facility]. Concentration was good; she could spell the word world backwards easily. No abnormal movements were seen. Gait was not evaluated. Insight and judgment are impaired. Vital Signs (Past 24 Hours): Last Vital Signs Temp 36.7 C 11/22/23 00:43 Pulse 73 11/22/23 10:15 Resp 26 H 11/22/23 10:15 BP 109/82 11/22/23 10:15 Pulse Ox 99 11/22/23 10:15 O2 Del Method Room Air 11/22/23 06:58 Exam Statement: Physical exam was performed today by AXEL Gonzalez. Other than the vocal tic, there were no issues that came up in the physical exam. Review of Systems Patient denied any cold or flu. No headache or fever. She is having some mild blurriness in her vision and vertigo, but no other problems with eyes, ears, nose, teeth, or swallowing. No pain or swelling in their neck. No wheezing, coughing, or shortness of breath. No chest pain, racing heartbeat, or irregular heart rate. No diarrhea, upset stomach, or constipation. No dysuria, problems emptying their bladder, initiating a urine stream, or hematuria. No skin lesions. No concerns about an STD. No breast tenderness, lumps, or milk production. No muscle weakness, numbness, or tingling. She feels shaky. No broken bones. No problems with their joints. No problems with their feet. No bleeding problems. Her last menstrual cycle started just over a month ago. She has not noticed a connection between her mood and her cycle. Results & Data (PSY) Laboratory Results A CBC this morning had a normal white blood cell count, low hemoglobin at 9.4, low hematocrit of 29.3, MCV low at 79.2. Platelets are normal. Yesterday, PT and INR were normal. This morning a CMP had a low sodium at 135, chloride high at 109, and calcium low at 8.2. Yesterday, potassium was slightly low at 3.3 but is normal at this morning. Anion gap was 17 yesterday but normal at 3 today. Yesterday, a lactate was elevated at 2.8. Yesterday, creatine kinase was normal. ALT and AST were both low. hCG was negative. Urinalysis showed 2+ glucose and 1+ ketones and trace leukocyte esterase. There were epithelial cells in the urine. Salicylate was negative acetaminophen was negative urine drug screen was negative alcohol was 109.6. COVID was negative. Diagnostic Findings A chest x-ray yesterday afternoon was normal. Medications Administered Lorazepam 2 mg/ Syringe 2 mls @ 2 mls/min IV UD PRN; Protocol PRN Reason: EtOH Withdrawal AWSS Score 8,9 Stop: 12/21/23 19:39 Last Admin: 11/21/23 20:58 Dose: 2 mls/min Documented By: JASSI Coding Level of Care Code 49093 [facility] Intl Hosp Care l 3 Diagnoses Major depressive disorder, single episode, severe without psychotic features F32.2 Suicide attempt by drug ingestion T50.902A Alcohol use disorder F10.90 Time Spent (min) 100
--- NOTE | 2023-11-22 12:09 | Hospitalist Progress Note ---
Date of Service November 22, 2023 Assessment & Plan (1) Drug overdose, intentional: Plan: -Currently stable and non-toxic appearing -Presented to the ED via EMS after her boyfriend found her unconscious with a suicide note next to her. -Concerns that she took up to 40-50 tabs of prozac and an unknown amount of alcohol -Patient will need to be monitored closely moving forward for signs/symptoms so Serotonin syndrome -EKG:NSR, qtc 453 -Will start AWSS protocol to be used to dose ativan for her psychomotor agitation -Received 3L LR -Suicide precautions, Seizure precautions - Patient on a 302 Warrant - notify psych when medically cleared -AM CBC, CMP, (2) Suicide gesture: Plan: -Suicide precautions ordered -Psychiatry consulted (3) Alcohol intoxication: Plan: -Alcohol level of 109 on arrival -Continue AWSS protocol for now to treat side effects of overdose and any possible alcohol withdrawal (4) Hypokalemia: Plan: -Potassium of 3.3 on arrival - repeat 4.1 today Recheck CMP am (5) Metabolic acidosis: Plan: -Patient was found to have an elevated anion gap metabolic acidosis with respiratory alkalosis -Likely due to her significant lactate elevation of 8 on arrival --> 4.3 --> 2.8 with IV FLuids Improving (6) Toxic metabolic encephalopathy: Plan: Toxic metabolic encephalopathy -present on admission, now improving Plan Dispo: continued inpatient stay Dvt proh: low risk DIscussed case with Dr. Riley - Psychiatry. Family updated at bedside Admission and Anticipated Discharge Date Admission Date: November 21, 2023 Subjective Patient resting in bed, mother friend and ex-boyfriend present at bedside - patient allows me to talk with them in the room. Patient reports she has no idea how many pills she took yesterday. Denies suicidal thoughts at the present. Has felt lightheaded when getting up to the bathroom and requiring assistance. Denies diaphoresis. Good appetite Mother reports that involuntary movements has improved overnight. Review of Systems Review of Systems: All systems reviewed & are unremarkable except as noted in Subjective Physical Exam Physical Exam: General: NAD, resting in bed, VS as above HEENT: PEERL, vocal tick Resp: normal respiratory effort, lungs clear to auscultation CV: RRR, no murmur, Abd: normal bowel sounds, non tender, no hepatosplenomegaly Extremities: Moves all extremities, no edema Results & Data Results & Data Vital Signs (Past 12 Hours) Vital Signs Temp Pulse Pulse Resp BP BP Pulse Ox 11/22/23 10:15 73 26 H 99 11/22/23 10:15 109/82 11/22/23 10:00 67 21 100 11/22/23 10:00 124/82 11/22/23 09:46 75 22 100 11/22/23 09:46 130/75 11/22/23 09:30 119/85 11/22/23 09:30 88 18 100 11/22/23 09:15 66 15 98 11/22/23 09:15 113/81 11/22/23 09:00 111/73 11/22/23 09:00 65 98 11/22/23 08:45 69 14 98 11/22/23 08:45 114/76 11/22/23 08:30 118/79 11/22/23 08:30 63 16 98 11/22/23 08:15 61 19 99 11/22/23 08:15 117/73 11/22/23 08:00 115/68 11/22/23 08:00 68 17 100 11/22/23 07:45 97 H 15 93 11/22/23 07:45 114/73 11/22/23 07:30 67 13 100 11/22/23 07:30 120/85 11/22/23 07:15 64 14 99 11/22/23 07:15 99/65 L 11/22/23 07:06 73 11/22/23 07:00 73 16 98 11/22/23 07:00 109/66 11/22/23 06:58 69 20 106/66 98 11/22/23 06:45 67 14 98 11/22/23 06:45 67 14 106/66 98 11/22/23 06:30 66 14 98 11/22/23 06:30 66 14 111/73 98 11/22/23 06:15 64 20 98 11/22/23 06:15 63 18 115/78 98 11/22/23 06:00 63 18 98 11/22/23 06:00 118/74 11/22/23 05:45 80 19 100 11/22/23 05:45 80 19 116/78 100 11/22/23 05:30 65 13 100 11/22/23 05:30 65 13 115/67 100 11/22/23 05:15 67 14 97/67 L 98 11/22/23 05:15 67 14 98 11/22/23 05:00 78 13 97 11/22/23 05:00 78 13 112/72 97 11/22/23 04:45 73 15 103/68 97 11/22/23 04:45 73 15 97 11/22/23 04:30 74 15 105/71 97 11/22/23 04:30 74 15 97 11/22/23 04:15 99/66 L 11/22/23 04:15 71 14 96 11/22/23 04:00 67 15 96 11/22/23 04:00 67 15 99/66 L 96 11/22/23 03:45 65 14 98 11/22/23 03:45 109/76 11/22/23 03:30 66 13 99 11/22/23 03:30 66 13 108/71 99 11/22/23 03:15 72 19 100 11/22/23 03:15 72 19 110/70 100 11/22/23 03:00 82 13 100/70 97 11/22/23 02:47 11/22/23 02:45 74 15 106/69 98 11/22/23 02:30 74 15 93/65 L 97 11/22/23 02:15 71 17 111/70 99 11/22/23 02:00 74 15 103/64 98 11/22/23 01:45 76 16 95/62 L 97 11/22/23 01:30 78 16 98/66 L 97 11/22/23 01:15 76 16 98/63 L 97 11/22/23 01:00 102/67 11/22/23 01:00 72 10 L 97 11/22/23 00:45 81 14 99 11/22/23 00:45 114/82 11/22/23 00:43 36.7 C 11/22/23 00:30 112/80 11/22/23 00:30 85 18 98 11/22/23 00:15 80 100/68 97 11/22/23 00:15 83 16 97 11/22/23 00:15 100/68 Pulse Ox O2 Del Method O2 Del Method 11/22/23 00:15 Room Air 11/22/23 00:15 Room Air 11/22/23 00:15 Laboratory Results CBC and chemistry reviewed PG Care Time/CCT Total # of Minutes Spent Total Time Spent with Patient: Total time spent is greater than 50% in coordination of care (as documented) at patient's floor/unit and/or counseling patient: Coding Level of Care Code 98036 SUB INP/OBS CARE 3/50MIN Diagnoses Drug overdose, intentional T50.902A Encounter type: initial encounter Suicide gesture X83.8XXA Encounter type: initial encounter Alcohol intoxication F10.920 Complication of substance-induced condition: uncomplicated Hypokalemia E87.6 Metabolic acidosis E87.20 Toxic metabolic encephalopathy G92.8 (1) Drug overdose, intentional Encounter type: initial encounter Qualified Code(s): T50.902A - Poisoning by unspecified drugs, medicaments and biological substances, intentional self-harm, initial encounter (2) Suicide gesture Encounter type: initial encounter Qualified Code(s): X83.8XXA - Intentional self-harm by other specified means, initial encounter (3) Alcohol intoxication Complication of substance-induced condition: uncomplicated Qualified Code(s): F10.920 - Alcohol use, unspecified with intoxication, uncomplicated
--- NOTE | 2023-11-22 13:31 | Electrocardiogram Report ---
Test Reason : Blood Pressure : / mmHG Vent. Rate : 119 BPM Atrial Rate : 119 BPM P-R Int : 170 ms QRS Dur : 086 ms QT Int : 292 ms P-R-T Axes : 066 086 -02 degrees QTc Int : 410 ms Poor data quality, interpretation may be adversely affected Sinus tachycardia Abnormal ECG No previous ECGs available Confirmed by Brendan Louie ([id number]) on 11/22/2023 1:31:08 PM Referred By: REFERRED SELF Confirmed By:Brendan Louie
--- NOTE | 2023-11-22 13:36 | Electrocardiogram Report ---
Test Reason : Blood Pressure : / mmHG Vent. Rate : 084 BPM Atrial Rate : 084 BPM P-R Int : 136 ms QRS Dur : 076 ms QT Int : 384 ms P-R-T Axes : 060 084 056 degrees QTc Int : 453 ms Normal sinus rhythm Normal ECG When compared with ECG of 21-NOV-2023 17:08, (unconfirmed) ST no longer depressed in Inferior leads T wave inversion no longer evident in Inferior leads Nonspecific T wave abnormality, improved in Anterolateral leads Confirmed by Brendan Louie ([id number]) on 11/22/2023 1:36:19 PM Referred By: REFERRED SELF Confirmed By:Brendan Louie
[2023-11-22] MEDS: LORazepam 1 MG in SYRINGE 0.5 ML IV PRN (16:52)
[2023-11-22] MEDS: LORazepam 1 MG/1 ML SYR ED Inj Use ONE (16:54)
--- NOTE | 2023-11-22 18:52 | Communication Note ---
Date of Service: November 22, 2023 Notified by RN about patient complaining of chest pain. Patient describes as difficulty taking a deep breath and things feel tight. No heartburn or reflux feeling. No radiation down the arm. Denies sharp pain. Continues with vocal tic and mother at bedside states this has not improved with Ativan. Pain with palpation epigastric area - worse when actively having vocal tic. Suspect muscle soreness from repetitive tic. Discussed case with Dr. Durand and will trial Thorazine.
[2023-11-22 19:28] LABS: Creatine Kinase 59 U/L (26-192)
[2023-11-22] MEDS: chlorproMAZINE HCL 25 MG TAB PO PRN (20:27)
[2023-11-23 06:29] LABS: Basophils # (auto) 0.03 K/uL (0.00-0.20); Basophils % (auto) 0.5 %; Eosinophils # (auto) 0.13 K/uL (0.00-0.50); Eosinophils % (auto) 2.3 %; Hematocrit (blood only) 31.2 % (37.0-47.0); Hemoglobin 10.1 g/dl (12.0-16.0); Immature Granulocytes # (auto) 0.04 K/uL (0.01-0.20); Immature Granulocytes % (auto) 0.7 %; Lymphocytes # (auto) 2.05 K/uL (1.20-3.40); Lymphocytes % (auto) 35.8 %; Mean Corpuscular Hemoglobin 25.7 pg (25.0-34.0); Mean Corpuscular Hgb Conc 32.4 g/dL (32.0-36.0); Mean Corpuscular Volume 79.4 fL (80.0-100.0); Mean Platelet Volume 10.1 fL (9.4-12.4); Monocytes # (auto) 0.53 K/uL (0.11-0.59); Monocytes % (auto) 9.3 %; Neutrophils # (auto) 2.94 K/uL (1.40-6.50); Neutrophils % (auto) 51.4 %; Platelet Count 262 K/uL (130-400); RDW Coefficient of Variation 15.5 % (11.5-14.5); RDW Standard Deviation 44.6 fL (36.4-46.3); Red Blood Count 3.93 M/uL (4.20-5.40); White Blood Count 5.72 K/ul (4.8-10.8)
[2023-11-23 07:02] LABS: Albumin Level 3.7 gm/dl (3.4-5.0); Bilirubin,Total 0.2 mg/dl (0.2-1.0); Calcium 8.6 mg/dl (8.6-10.3); Potassium 3.7 mmol/L (3.5-5.1)
[2023-11-23 07:08] LABS: Albumin Globulin Ratio 1.5 (0.9-2); BUN Creatinine Ratio 16.9 (10-20); Creatinine Clr Calc Pharmacy 106.8 ml/min; Est GFR (African American) 148.1 ml/min; Est GFR (Non-African American) 127.8 ml/min; Globulin 2.5 gm/dl (2.5-4.0); Total Protein 6.2 gm/dl (6.0-8.3)
--- NOTE | 2023-11-23 10:18 | Electrocardiogram Report ---
Test Reason : Blood Pressure : / mmHG Vent. Rate : 072 BPM Atrial Rate : 072 BPM P-R Int : 142 ms QRS Dur : 078 ms QT Int : 330 ms P-R-T Axes : 067 084 031 degrees QTc Int : 361 ms Normal sinus rhythm Nonspecific T wave abnormality Abnormal ECG When compared with ECG of 21-NOV-2023 21:41, QT has shortened Confirmed by Brendan Louie ([id number]) on 11/23/2023 10:18:14 AM Referred By: REFERRED SELF Confirmed By:Brendan Louie
--- NOTE | 2023-11-23 15:54 | Psychiatric Progress Note ---
Date of Service November 23, 2023 Impression / Recommendations Impression This is a 18-year-old adopted female who has been under some significant stressors (see above). I do not know anything about family history because of her adopted status. Sounds like she has been having difficulty launching into adulthood and had a recent break-up with a boyfriend who has been cheating on her. She has a history of depression and had recently started fluoxetine and felt that it was somewhat helpful but had not reached its full effect probably. She came into our hospital on a mental health warrant by the police but is willing to sign in voluntarily to the psychiatric unit when she is medically stabilized. I believe the patient is still at very high risk of suicide and requires psychiatric hospitalization, but she is willing to come in voluntarily at this time. 11/23/23: Patient seems very distant from her suicide attempt. She is willing to come into the hospital though. I still believe she requires inpatient hospitalization given that she had such an impulsive overdose and could not connect any particular stressors to this even though there were some very significant ones. I think she is still at high risk of dying. (1) Major depressive disorder, single episode, severe without psychotic features: (2) Suicide attempt by drug ingestion: (3) Alcohol use disorder: (4) Provisional tic disorder: Plan 1. We will continue to follow the patient while she is being medically treated and stabilized. 2. Once she is medically stabilized, she will need to be admitted to a psychiatric hospital. She prefers to do that locally, but parents would prefer for her to be hospitalized locally. It is too early to know what will be available once she is medically stable. 3. We will not be restarting the fluoxetine right away and it is not clear if we will continue it or not. We will decide that later. For now, we will not use any psychiatric medications until she is been stable for a little while. 4. She understands that there is still work to be done and I encouraged her to take part in the therapeutic milieu on the psychiatric unit, attend groups and activities, maintain good hygiene, and try not to isolate. 5. Discharge planning will include outpatient medication management and individual therapy. 11/23/23: Now that she is medically stable, we will work on trying to get her placed into an inpatient psychiatric unit. She and her mother are somewhat at odds as to where she will go for her inpatient treatment. We will figure this out. Today I spent about 37 minutes on the case. This included meeting with the patient, meeting with mother, discussing the case with AXEL Gonzalez, discussion with the mental health liaison, and documentation. Interval History Identifying Information Emilia is a 18 yo adopted AA female currently living in [place] in an apartment with 3 roommates. She was brought in emergently to the ED on the evening of 11/21/23 after an overdose of fluoxetine in a suicide attempt. Chief Complaint "I overdosed on pills." Subjective Subjective Today I met with the patient, reviewed the chart, and discussed the case with AXEL Gonzalez. The patient is here after an overdose of fluoxetine in a suicide attempt that was pretty impulsive. She has been somewhat unsteady on her feet requiring help when ambulating. She continues to have a vocal tic that seems to be somewhat worse. She was given some Thorazine that helped a little bit according to the patient. Mother said some concerns about her staying here in [place] after she gets out of the hospital and not having enough support. Mother wants her daughter closer to home, but the patient would prefer to stay in [place] where her life is. Patient is denying any suicidal or homicidal thoughts. She did get some sleep and I believe she started her eating regular food. This afternoon, she was medically cleared by the medical staff. Physical Exam Psychiatric Patient was alert and cooperative. She was clean and well-groomed wearing a hospital gown. Eye contact was fair. Speech was normal other than a vocal tic that she says is new since the overdose; it was worse today. Mood was "good." Affect was restricted. Thought process was logical and just a bit goal- directed. She has an attitude of "velma indifference." There was no evidence of any hallucinations or delusions. Patient denied any suicidal or homicidal thoughts. Memory and concentration were adequate. No abnormal movements were seen. Gait was not evaluated. Insight and judgment are impaired. Vital Signs (Past 24 Hours) Last Vital Signs Temp 36.7 C 11/22/23 00:43 Pulse 73 11/23/23 15:42 Resp 14 11/23/23 15:42 BP 87/53 L 11/23/23 15:43 Pulse Ox 98 11/23/23 15:42 O2 Del Method Room Air 11/23/23 14:39 Results & Data ([facility]) Laboratory Results Laboratory Results - last 24 hr 11/22/23 11/23/23 04:30 05:44 WBC 5.72 RBC 3.93 L Hgb 10.1 L Hct 31.2 L MCV 79.4 L MCH 25.7 MCHC 32.4 RDW Std Deviation 44.6 RDW Coeff of Kim 15.5 H Plt Count 262 MPV 10.1 Immature Gran % (Auto) 0.7 Neut % (Auto) 51.4 Lymph % (Auto) 35.8 [place] % (Auto) 9.3 Eos % (Auto) 2.3 Baso % (Auto) 0.5 Neut # (Auto) 2.94 Lymph # (Auto) 2.05 [place] # (Auto) 0.53 Eos # (Auto) 0.13 Baso # (Auto) 0.03 Immature Gran # (Auto) 0.04 Sodium 137 Potassium 3.7 Chloride 108 H Carbon Dioxide 23 Anion Gap 6 BUN 11 Creatinine 0.65 Est Cr Clr Drug Dosing 106.8 Est GFR ( Amer) 148.1 Est GFR (Non-Af Amer) 127.8 BUN/Creatinine Ratio 16.9 Glucose 99 Calcium 8.6 Total Bilirubin 0.2 AST 9 L ALT 5 L Alkaline Phosphatase 45 Total Creatine Kinase 59 Total Protein 6.2 Albumin 3.7 Globulin 2.5 Albumin/Globulin Ratio 1.5 Current Inpatient Medications Current Inpatient Medications: Current Inpatient Medications Chlorpromazine HCl (Chlorpromazine Hcl 25 Mg Tab) 25 mg PO TID PRN PRN Reason: hiccup/vocal tick Stop: 12/22/23 20:59 Last Admin: 11/23/23 10:06 Dose: 25 mg Lorazepam 1 mg/ Syringe 1 mls @ 2 mls/min IV UD PRN; Protocol PRN Reason: EtOH Withdrawal AWSS Score 6,7 Stop: 12/21/23 19:39 Last Admin: 11/22/23 16:52 Dose: 2 mls/min Lorazepam 2 mg/ Syringe 2 mls @ 2 mls/min IV UD PRN; Protocol PRN Reason: EtOH Withdrawal AWSS Score 8,9 Stop: 12/21/23 19:39 Last Admin: 11/21/23 20:58 Dose: 2 mls/min Lorazepam 3 mg/ Syringe 3 mls @ 2 mls/min IV ONCE PRN; Protocol PRN Reason: EtOH Withdrawal AWSS Score 10+
--- NOTE | 2023-11-23 16:22 | Hospitalist Progress Note ---
Date of Service November 23, 2023 Assessment & Plan (1) Drug overdose, intentional: Plan: -Presented to the ED via EMS after her boyfriend found her unconscious with a suicide note next to her. -Concerns that she took up to 40-50 tabs of prozac and an unknown amount of alcohol. patient still unclear how many pills she took -EKG:NSR, qtc 453 -Will start AWSS protocol to be used to dose ativan for her psychomotor agitation - has not required Ativan in 24 hours -Received 3L LR -Suicide precautions, Seizure precautions - Patient on a 302 [address]arrant - patient is medically cleared, Dr. Riley made aware (2) Provisional tic disorder: Plan: Vocal tic - hiccup like -Patient and family decline prior hx of tic - Does not occur when sleeping, mother reports seems to be worse when patient is stressed/anxious - Trial of thorazine, which did suppress tics, but quite sedating for patient. Will trial haloperidol 2mg PO prn Spoke with poison control this afternoon. No known relation between vocal tic and SSRI overdose or serotonin syndrome and this should NOT prevent patient from being medically cleared. (3) Metabolic acidosis: Plan: -Patient was found to have an elevated anion gap metabolic acidosis with respiratory alkalosis -Likely due to her significant lactate elevation of 8 on arrival --> 4.3 --> 2.8 with IV FLuids (4) Suicide gesture: Plan: -Suicide precautions ordered -Psychiatry consulted (5) Alcohol intoxication: Plan: -Alcohol level of 109 on arrival -Continue AWSS protocol for now to treat side effects of overdose and any possible alcohol withdrawal (6) Hypokalemia: Plan: -Potassium of 3.3 on arrival, received 30meq replacement IV - stable 3.7 Plan Dispo: Continued inpatient stay while awaiting inpatient psych treatment Patient is medically cleared Mother and father updated at bedside Admission and Anticipated Discharge Date Admission Date: November 21, 2023 Subjective Patient seen resting in bed, mother and father at bedside. Mother reports that vocal tic was worse this morning, but seems to be worsened by patient stress/anxiety. Patient has walked to the bathroom with standby assist. Patient very tired after receiving the Thorazine, however does not have takes while she is sleeping. Patient eating and drinking without issue. Urinating without issue. Review of Systems Review of Systems: All systems reviewed & are unremarkable except as noted in Subjective Physical Exam Physical Exam: General: NAD, resting in bed, VS as above HEENT: No vocal tic while I am present in the room Resp: normal respiratory effort, lungs clear to auscultation CV: RRR, no murmur, Abd: normal bowel sounds, non tender, no hepatosplenomegaly Extremities: Moves all extremities, no edema Results & Data Results & Data Vital Signs (Past 12 Hours) Vital Signs Pulse Pulse Resp BP BP Pulse Ox O2 Del Method 11/23/23 16:00 75 14 106/61 97 11/23/23 15:45 78 20 98 11/23/23 15:43 67 14 98 11/23/23 15:43 87/53 L 11/23/23 15:42 73 14 98 11/23/23 15:30 85/52 L 11/23/23 15:30 74 13 98 11/23/23 15:16 70 16 98 11/23/23 15:16 85/55 L 11/23/23 15:13 72 17 99 11/23/23 15:13 81/51 L 11/23/23 15:00 66 28 H 97 11/23/23 14:39 96 H 19 107/50 L 98 Room Air 11/23/23 14:38 73 15 100 11/23/23 14:38 107/50 L 11/23/23 14:30 84 18 99 11/23/23 14:00 75 15 98 11/23/23 13:30 78 13 98 11/23/23 13:00 73 14 97 11/23/23 12:30 78 14 96 11/23/23 12:00 93 H 18 99 11/23/23 11:30 87 17 98 11/23/23 11:00 75 16 98 11/23/23 11:00 107/60 11/23/23 11:00 90 18 107/60 98 Room Air 11/23/23 10:56 84 19 98 11/23/23 10:56 117/64 11/23/23 10:30 73 19 98 11/23/23 10:30 93/76 L 11/23/23 10:00 113/70 11/23/23 10:00 81 16 98 11/23/23 09:30 94/64 L 11/23/23 09:30 81 17 98 11/23/23 09:00 75 16 120/71 100 11/23/23 08:30 68 14 97/62 L 98 11/23/23 08:00 65 13 92/56 L 98 11/23/23 07:30 91/58 L 11/23/23 07:30 75 15 98 11/23/23 07:21 65 11/23/23 07:00 67 13 97 11/23/23 07:00 93/58 L 11/23/23 06:30 84/52 L 11/23/23 06:30 70 15 97 11/23/23 06:00 91/54 L 11/23/23 06:00 71 17 97 11/23/23 05:30 65 15 97 11/23/23 05:30 89/61 L 11/23/23 05:00 92/63 L 11/23/23 05:00 69 16 97 Room Air 11/23/23 04:30 93/71 L 11/23/23 04:30 66 13 97 Room Air Laboratory Results CBC and chemistry reviewed PG Care Time/CCT Total # of Minutes Spent Total Time Spent with Patient: Total time spent is greater than 50% in coordination of care (as documented) at patient's floor/unit and/or counseling patient: Coding Level of Care Code 22731 SUB INP/OBS CARE 3/50MIN Diagnoses Drug overdose, intentional T50.902A Encounter type: initial encounter Provisional tic disorder F95.0 Metabolic acidosis E87.20 Suicide gesture X83.8XXA Encounter type: initial encounter Alcohol intoxication F10.920 Complication of substance-induced condition: uncomplicated Hypokalemia E87.6 (1) Drug overdose, intentional Encounter type: initial encounter Qualified Code(s): T50.902A - Poisoning by unspecified drugs, medicaments and biological substances, intentional self-harm, initial encounter (4) Suicide gesture Encounter type: initial encounter Qualified Code(s): X83.8XXA - Intentional self-harm by other specified means, initial encounter (5) Alcohol intoxication Complication of substance-induced condition: uncomplicated Qualified Code(s): F10.920 - Alcohol use, unspecified with intoxication, uncomplicated
[2023-11-23] MEDS: haloperidoL 1 MG TAB PO PRN (18:15)
--- NOTE | 2023-11-23 18:27 | Discharge Summary ---
Discharge Summary Date of Service November 23, 2023 Notes For Next Care Provider Intentional overdose - further management plan will be dependent on inpatient psych recommendations Medication Changes From Visit stopped prozac Admission HPI Per Admitting Provider Emilia is a 18 year old female with a PMH significant for Depression who presented to the [facility] ED via EMS on 11/21/23 for reported intentional overdose of Prozac and alcohol intoxication. Per the ED staff, the patient was reported to have not been taking her Prozac consistently. Police found her bottle which was initially filled in September for 90 tablets. The patient had 40 tablets left when they were counted on scene. It is unknown how much alcohol she ingested. The patient received 1mg IV ativan in route by EMS. On arrival she was noted to be tachycardic with with HR in the 130's, mildly hypotensive at 95/54, but otherwise stable. Labs were significant for an ABG pH of 7.33, pCO2 of 25, pO2 of 108, bicarb level of 13, lactate of 8, AG of 17 with bicarb of 14, and alcohol level of 109. Chest xray was negative for acute findings. The rest of her urine drug panel including salicylate and acetaminophen levels were negative. The patient was give a total of 2L NSS, 1L LR, and 1 mg IV ativan prior to admission. At the time of the exam the patient was lying in bed, still having intermittent jerking movements of the upper and lower extremities. She will open her eyes when you speak to her and follow commands but will not speak. There was no family of friends in the room during my exam. The ED staff spoke with Poison control who recommend continued monitoring on telemetry, IV fluid hydration, and use of benzodiazepines for agitation/psychomotor agitation. Please refer to Dr. Loaiza's attestation for any changes to the treatment plan Principal Dx & Hospital Course #1 = Principal Diagnosis (1) Drug overdose, intentional: -Presented to the ED via EMS after her boyfriend found her unconscious with a suicide note next to her. -Concerns that she took up to 40-50 tabs of prozac and an unknown amount of alcohol. patient still unclear how many pills she took -EKG:NSR, qtc 453 -Will start AWSS protocol to be used to dose ativan for her psychomotor agitation - has not required Ativan in 24 hours -Received 3L LR -Suicide precautions, Seizure precautions - Patient on a 302 [address]arrant - patient is medically cleared, Dr. Riley made aware (2) Provisional tic disorder: Vocal tic - hiccup like -Patient and family decline prior hx of tic - Does not occur when sleeping, mother reports seems to be worse when patient is stressed/anxious - Trial of thorazine, which did suppress tics, but quite sedating for patient. Will trial haloperidol 2mg PO prn Spoke with poison control this afternoon. No known relation between vocal tic and SSRI overdose or serotonin syndrome and this should NOT prevent patient from being medically cleared. (3) Metabolic acidosis: -Patient was found to have an elevated anion gap metabolic acidosis with respiratory alkalosis -Likely due to her significant lactate elevation of 8 on arrival --> 4.3 --> 2.8 with IV FLuids (4) Alcohol intoxication: -Alcohol level of 109 on arrival -Continue AWSS protocol for now to treat side effects of overdose and any possible alcohol withdrawal --> has not need ativan for > 24 hours (5) Hypokalemia: -Potassium of 3.3 on arrival, received 30meq replacement IV - stable 3.7 Plan Dispo: discharge to inpatient psych, 3S Discharge Exam General: NAD, resting in bed, VS as above HEENT: No vocal tic while I am present in the room Resp: normal respiratory effort, lungs clear to auscultation CV: RRR, no murmur, Abd: normal bowel sounds, non tender, no hepatosplenomegaly Extremities: Moves all extremities, no edema Updated Medication List Medication Instructions Recorded Confirmed Type haloperidol 1 mg tablet 2 mg (2 x 1 mg) PO TID PRN hiccups 11/23/23 Rx 5 days #10 tabs Hospital Stay Data Consultations 11/21/23 18:20 ED Decision to Admit Stat 11/21/23 19:45 Consult Psychiatry Routine 11/22/23 07:03 Consult Behavioral Health Liaison Routine Pending Results Patient Have Any Pending Studies at Discharge: No Discharge Instructions Given to Patient (Per Discharging Provider) You were hospitalized after intentional overdose on prozac. Your symptoms of this improved with IV hydration. You will be going to inpatient psychiatry unit to determine further steps of management. Total Time Total Time Spent Total Time Spent (In Minutes): Time spend day of discharge 35 minutes including direct patient care, medication reconciliation, documentation, review of labs and images, and coordination of care. Supervising Physician Co-Signing Physician Notes During face to face encounter, I obtained a brief physical examination, discussed hospital stay with patient and discharge instructions with patient. I discussed discharge plan of care with PRICILA Gonzalez. I reviewed above note and agree with it except for the following: Patient is medically cleared for discharge and patient can be transferred to the psych unit. Patient was treated for drug overdose. Discharge instructions noted above. Coding Level of Care Code 03325 INP/OBS DISCH >30 MIN Diagnoses Drug overdose, intentional T50.902A Encounter type: initial encounter Provisional tic disorder F95.0 Metabolic acidosis E87.20 Alcohol intoxication F10.920 Complication of substance-induced condition: uncomplicated Hypokalemia E87.6
--- NOTE | 2023-11-24 15:13 | Coding Query ---
To promote full compliance with coding requirements relating to patient care, provider participation is requested in all cases of general service officer uncertainty. Please assist us with the question(s) below: Coding Question(s): The diagnosis(es) below was documented in the 11/22/23 Hospitalist Progress Note then subsequently fell off all further documentation. Please indicate if it is still a possible diagnosis or ruled out. Physician's Response(s): TOXIC METABOLIC ENCEPHALOPATHY ( xx ) Diagnosed and POA ( ) Diagnosed and not POA ( ) Ruled out ( ) Other (please specify) Thank you for your assistance, Shirley Silva - [facility] CENTERMissy
== END 2023-11-23 20:23 | DRG 917 ==
LOC: ED 17:03 → SUATTDRO 19:44 → EDINP 19:44

== ENCOUNTER 2023-11-23 18:53 | Inpatient (IN) ==
[2023-11-23] MEDS ORDERED: BISMUTH SUBSALICYLATE LIQD 236 ML PO PRN (19:08)
[2023-11-23] MEDS ORDERED: MAGNESIUM HYDROXIDE SUSP 30 ML UDC PO PRN (19:08)
[2023-11-23] MEDS ORDERED: SODIUM CHLORIDE 0.65% NA SOLN 45 ML (OCEAN) PRN (19:08)
[2023-11-23] MEDS ORDERED: ALUMINUM/MAGNESIUM SUSP 30 ML UDC PO PRN (19:08)
[2023-11-23] MEDS ORDERED: hydrOXYzine HCl 25 MG TAB PO PRN (19:08)
[2023-11-23 21:30] VITALS: RESP 16; O2SAT 100
[2023-11-24] MEDS ORDERED: haloperidoL 1 MG TAB PO PRN (14:42)
[2023-11-24] MEDS ORDERED: BENZTROPINE MESYLATE 0.5 MG TAB PO PRN (14:55)
--- NOTE | 2023-11-24 14:55 | History & Physical ---
Date of Service November 24, 2023 Impression / Recommendations Impression This is a 18-year-old adopted female who has been under some significant stressors (see above). I do not know anything about family history because of her adopted status. Sounds like she has been having difficulty launching into adulthood and had a recent break-up with a boyfriend who has been cheating on her. She has a history of depression and had recently started fluoxetine and felt that it was somewhat helpful but had not reached its full effect probably. She came into our hospital on a mental health warrant by the police but is willing to sign in voluntarily to the psychiatric unit when she is medically stabilized. I believe the patient is still at very high risk of suicide and requires psychiatric hospitalization, but she is willing to come in voluntarily at this time. 11/23/23: Patient seems very distant from her suicide attempt. She is willing to come into the hospital though. I still believe she requires inpatient hospitalization given that she had such an impulsive overdose and could not connect any particular stressors to this even though there were some very significant ones. I think she is still at high risk of dying. 11/24/23: Patient is showing signs of continued improvement. Nice to see the brighter affect and the better interaction with peers. Physically, she is looking much better as well. I suspected the Haldol was causing some akathisia. (1) Major depressive disorder, single episode, severe without psychotic features: (2) Suicide attempt by drug ingestion: (3) Alcohol use disorder: (4) Provisional tic disorder: (5) Akathisia: Plan 1. We will continue to follow the patient while she is being medically treated and stabilized. 2. Once she is medically stabilized, she will need to be admitted to a [facility] hospital. She prefers to do that locally, but parents would prefer for her to be hospitalized locally. It is too early to know what will be available once she is medically stable. 3. We will not be restarting the fluoxetine right away and it is not clear if we will continue it or not. We will decide that later. For now, we will not use any psychiatric medications until she is been stable for a little while. 4. She understands that there is still work to be done and I encouraged her to take part in the therapeutic milieu on the psychiatric unit, attend groups and activities, maintain good hygiene, and try not to isolate. 5. Discharge planning will include outpatient medication management and individual therapy. 11/23/23: Now that she is medically stable, we will work on trying to get her placed into an inpatient psychiatric unit. She and her mother are somewhat at odds as to where she will go for her inpatient treatment. We will figure this out. 11/24/23: We will continue with her current level of observation and precautions. I encouraged her to continue to take part in the therapeutic milieu, attend groups and activities, maintain good hygiene, and try not to isolate. She has expressed an interest in filing a 72-hour request for discharge. We will likely restart her fluoxetine around the time of discharge. I think the Haldol she received may have caused a little bit of akathisia. I wrote for a much lower dose at 1 mg every 12 hours as needed for the vocal tic. I told her it is up to her if she wants to use it. I will also write for some Cogentin 0.5 mg twice daily as needed for the akathisia. We will try to get a family meeting set up as quickly as we can. Today I spent about 52 minutes on the case. This included meeting with the patient, reviewing the chart, nursing report, multidisciplinary treatment team meeting, orders, and documentation. Suicide Risk Level Suicide Risk Level: Low (q15 min observation checks) Psychiatric History Identifying Data Emilia is a 18 yo adopted AA female currently living in [place] in an apartment with 3 roommates. She was brought in emergently to the ED on the evening of 11/21/23 after an overdose of fluoxetine in a suicide attempt. Chief Complaint "I overdosed on pills." History of Present Illness Please refer to my psychiatric consultation from November 21 as well as the 2 progress notes after that. The patient transferred to the psychiatric unit yesterday afternoon. Today I reviewed the chart, received nursing report, and met with the patient. We also had a multidisciplinary treatment team meeting to discuss her care. The patient is here after an overdose of fluoxetine while intoxicated on alcohol in a suicide attempt. Staff report that her mom is pretty worried about her and prefers to have her closer to home. Staff say that she transition to the unit pretty easily yesterday. When I met with her today, she said that she slept well and her appetite is good. She described her mood is "comfortable." She feels well physically. She denies suicidal or homicidal thoughts. She denies hallucinations. She is finding the groups here helpful. She is participating well. We talked a little bit about her longer-term plans. She says that she plans to stay with her best friend and the best friend's boyfriend and [place] after she gets out of the hospital for a little while. She admits that she does need a therapist. She was getting medication management via telehealth. She is also interested in getting out of the hospital as quickly as she can. Past Psychiatric History Current Psychiatric Diagnosis: MDD History of Previous Suicide Attempt: Yes Additional Notes: Please see my psychiatric consultation from November 21. Allergies Allergy/AdvReac Type Severity Reaction Status Date / Time No Known Allergies Allergy Verified 11/21/23 18:18 Home Medications Medication Instructions Recorded Confirmed Type haloperidol 1 mg tablet 2 mg (2 x 1 mg) PO TID PRN hiccups 11/23/23 Rx 5 days #10 tabs Family History Family History of: Doesn't Know Family Mental Health History Comment: Pt was adopted at 8 months Alcohol History Hx of Alcohol Use Over the Past 12 Months: Yes AUDIT Total Score: 1 Smoking Use Have You Smoked or Used Tobacco Products in the Last 30 Days: Yes tobacco type: e-cigarettes Smoking Status: Current some day smoker Substance History Hx of Prescription Med Misuse Over the Past 12 Months: No Hx of Over the Counter Med Misuse Over the Past 12 Months: No Hx of Inhalent Misuse Over the Past 12 Months: No Hx of Organic Substance Use Over the Past 12 Months: No Hx of Illegal Substances/Street Drug Use Over Past 12 Months: No Problems as a Result of Past Substance Use: Attempted Suicide Personal History Highest Grade Completed: High School Graduate Beliefs That Will Affect Care: None Patient History Medical History (Updated 11/24/23 @ 14:59 by Judson Riley Jr, MD) Suicide gesture Social History Smoking Status: Current some day smoker Second Hand Exposure: No; Do You Dip or Chew Tobacco: No; Hx Alcohol Use: Yes Alcohol type: beer, wine and hard liquor Hx Substance Use: No Preferred Language: Indonesian Communication Ability: Effective Recreation Center Director Required: No Beliefs That Will Affect Care: None Current Living Situation: Family Feels Safe at Home: Yes Gender Identity: Female Assistive Devices: None Review of Systems Review of Systems: Patient denied any cold or flu. No headache or fever. No problems with eyes, ears, nose, teeth, or swallowing. No pain or swelling in their neck. No wheezing, coughing, or shortness of breath. No chest pain, racing heartbeat, or irregular heart rate. No diarrhea, upset stomach, or constipation. No dysuria, problems emptying their bladder, initiating a urine stream, or hematuria. No skin lesions. No concerns about an STD. No breast tenderness, lumps, or milk production. No muscle weakness, numbness, or tingling. She is having some shakiness she has noticed in her right leg and a feeling like she needs to be pacing. No broken bones. No problems with their joints. No problems with their feet. No bleeding problems. Physical Exam Psychiatric: Patient was alert and oriented x 3. She was clean and very well-groomed. Eye contact was good. Speech was normal. Mood was described as "comfortable." Affect is much brighter today. Thought process was logical and goal-directed. There was no evidence of any hallucinations or delusions. Patient denied any suicidal or homicidal thoughts. Memory was good; she knew her birthdate, the president's name, and the body service team member's name. Concentration was good; she could spell the word house backwards easily. No abnormal movements were seen. Gait was normal. Insight and judgment are mildly impaired. Vital Signs (Past 24 Hours): Last Vital Signs Temp 36.8 C 11/24/23 06:32 Pulse 66 11/24/23 06:33 Resp 16 11/24/23 06:32 BP 98/63 L 11/24/23 06:33 Pulse Ox 100 11/23/23 20:41 O2 Del Method Room Air 11/23/23 20:41 Exam Statement: Physical exam was performed yesterday by AXEL Gonzalez. There was nothing abnormal noted. Results & Data ([facility]) Current Inpatient Medications Current Inpatient Medications: Current Inpatient Medications Acetaminophen (Acetaminophen 325 Mg Tab) 650 mg PO Q4H PRN PRN Reason: Headache or Minor Fever Stop: 12/23/23 19:07 Al Hydrox/Mg Hydrox/Simethicone (Aluminum/Magnesium Susp 30 Ml Udc) 30 ml PO Q4H PRN PRN Reason: GI Upset Stop: 12/23/23 19:07 Bismuth Subsalicylate (Bismuth Subsalicylate Liqd 236 Ml) 15 ml PO PRN PRN PRN Reason: Loose Stool Stop: 12/23/23 19:07 Haloperidol (Haloperidol 1 Mg Tab) 1 mg PO Q12H PRN PRN Reason: Vocal Tic Stop: 12/24/23 14:41 Hydroxyzine HCl (Hydroxyzine Hcl 25 Mg Tab) 50 mg PO HSZ PRN PRN Reason: Insomnia Stop: 12/23/23 19:07 Hydroxyzine HCl (Hydroxyzine Hcl 25 Mg Tab) 25 mg PO Q4H PRN PRN Reason: Anxiety Stop: 12/23/23 19:07 Magnesium Hydroxide (Magnesium Hydroxide Susp 30 Ml Udc) 30 ml PO DAILY PRN PRN Reason: Constipation Stop: 12/23/23 19:07 Sodium Chloride (Sodium Chloride 0.65% Na Soln 45 Ml ([place])) 1 - 2 sprays NA PRN PRN PRN Reason: Nasal Dryness/Congestion Stop: 12/23/23 19:07
[2023-11-24] MEDS: ACETAMINOPHEN 325 MG TAB PO PRN (21:49)
[2023-11-25] MEDS: hydrOXYzine HCl 25 MG TAB PO PRN (02:15)
[2023-11-25 06:45] VITALS: TEMP 98.1
[2023-11-25] MEDS: NICOTINE 21 MG/24 HR TDSY TD SCH (13:01)
--- NOTE | 2023-11-25 15:43 | Psychiatric Progress Note ---
Date of Service November 25, 2023 Impression / Recommendations Impression This is a 18-year-old adopted female who has been under some significant stressors (see above). I do not know anything about family history because of her adopted status. Sounds like she has been having difficulty launching into adulthood and had a recent break-up with a boyfriend who has been cheating on her. She has a history of depression and had recently started fluoxetine and felt that it was somewhat helpful but had not reached its full effect probably. She came into our hospital on a mental health warrant by the police but is willing to sign in voluntarily to the psychiatric unit when she is medically stabilized. I believe the patient is still at very high risk of suicide and requires psychiatric hospitalization, but she is willing to come in voluntarily at this time. 11/23/23: Patient seems very distant from her suicide attempt. She is willing to come into the hospital though. I still believe she requires inpatient hospitalization given that she had such an impulsive overdose and could not connect any particular stressors to this even though there were some very significant ones. I think she is still at high risk of dying. 11/24/23: Patient is showing signs of continued improvement. Nice to see the brighter affect and the better interaction with peers. Physically, she is looking much better as well. I suspected the Haldol was causing some akathisia. 11/25/23: Patient is continue to show improvement. It is nice to see her brighter and interacting with her peers. When she does not know that I am watching, I can see her interacting quite a bit with her peers. The tic is now gone. (1) Major depressive disorder, single episode, severe without psychotic features: (2) Suicide attempt by drug ingestion: (3) Alcohol use disorder: (4) Provisional tic disorder: (5) Akathisia: Plan 1. We will continue to follow the patient while she is being medically treated and stabilized. 2. Once she is medically stabilized, she will need to be admitted to a psychiatric hospital. She prefers to do that locally, but parents would prefer for her to be hospitalized locally. It is too early to know what will be available once she is medically stable. 3. We will not be restarting the fluoxetine right away and it is not clear if we will continue it or not. We will decide that later. For now, we will not use any psychiatric medications until she is been stable for a little while. 4. She understands that there is still work to be done and I encouraged her to take part in the therapeutic milieu on the psychiatric unit, attend groups and activities, maintain good hygiene, and try not to isolate. 5. Discharge planning will include outpatient medication management and individual therapy. 11/23/23: Now that she is medically stable, we will work on trying to get her placed into an inpatient psychiatric unit. She and her mother are somewhat at odds as to where she will go for her inpatient treatment. We will figure this out. 11/24/23: We will continue with her current level of observation and precautions. I encouraged her to continue to take part in the therapeutic milieu, attend groups and activities, maintain good hygiene, and try not to isolate. She has expressed an interest in filing a 72-hour request for discharge. We will likely restart her fluoxetine around the time of discharge. I think the Haldol she received may have caused a little bit of akathisia. I wrote for a much lower dose at 1 mg every 12 hours as needed for the vocal tic. I told her it is up to her if she wants to use it. I will also write for some Cogentin 0.5 mg twice daily as needed for the akathisia. We will try to get a family meeting set up as quickly as we can. 11/25/23: We are going to continue with her current level of observation and precautions. I encouraged her to keep going to groups and activities to help stay distracted. Today I used a cognitive behavioral approach and we discussed something she can do to try to help with her sleep and I gave her a handout on sleep hygiene which she can read and discuss with me further tomorrow. I also encouraged her to try the hydroxyzine around bedtime tonight to see if that helps her sleep throughout the night. She is okay with restarting her fluoxetine when she gets out of the hospital. We will look towards discharge soon and continue to work on planning. Today I spent about 44 minutes on the case. This included meeting with the patient, reviewing the chart, nursing report, multidisciplinary staff meeting, orders, and documentation. Suicide Risk Level Suicide Risk Level: Low (q15 min observation checks) Interval History Identifying Information Emilia is a 18 yo adopted AA female currently living in [place] in an apartment with 3 roommates. She was brought in emergently to the ED on the evening of 11/21/23 after an overdose of fluoxetine in a suicide attempt. Chief Complaint "I overdosed on pills." Review of Systems Sleep Information Total Hours of Sleep: 7 Meal Information Percent Meal Consumed - Breakfast: 90 Percent Meal Consumed - Lunch: 100 Percent Meal Consumed - Dinner: 50 Subjective Subjective Today I met with the patient, received nursing report, and reviewed her chart. We also had a multidisciplinary staff meeting to discuss her care. The patient is here after an overdose of fluoxetine while intoxicated on alcohol in a suicide attempt. Staff report that she filed a 72-hour request for discharge. She had a meeting yesterday with her mother that went well. She seemed to be able to set some good boundaries. Staff state that she has been content and following through and everything that she is supposed to do. When I met with her today, she said she was tired and did not get some very good sleep. However, her appetite was good. She describes her mood today as "tired but optimistic." The tics have gone away. She denies suicidal ideation, self- harm urges, or homicidal thoughts. She plans to go back to her parents home for spring and then come back to [place] afterwards and spend some time with her best friend Batsheva rather than go back to her own apartment for a while. She has been supportive with her peers on the unit. She has been communicating with family and friends on the phone. There have been no hallucinations. She is having some difficulty falling asleep. This is a chronic problem she says. Physical Exam Psychiatric Patient was alert and cooperative. She was clean and well-groomed. Eye contact was really good today. Speech was normal; no vocal tic. Mood was described as "tired but optimistic." Affect is bright. Thought process was logical and goal-directed. There was no evidence of any hallucinations or delusions. Patient denied any suicidal or homicidal thoughts. Memory and concentration were good. No abnormal movements were seen. Gait was normal. Insight and judgment are mildly impaired. Vital Signs (Past 24 Hours) Last Vital Signs Temp 36.7 C 11/25/23 06:44 Pulse 75 11/25/23 06:45 Resp 16 11/25/23 06:44 BP 126/78 11/25/23 06:45 Pulse Ox 100 11/23/23 20:41 O2 Del Method Room Air 11/23/23 20:41 Results & Data ([facility]) Current Inpatient Medications Current Inpatient Medications: Current Inpatient Medications Acetaminophen (Acetaminophen 325 Mg Tab) 650 mg PO Q4H PRN PRN Reason: Headache or Minor Fever Stop: 12/23/23 19:07 Last Admin: 11/24/23 21:49 Dose: 650 mg Al Hydrox/Mg Hydrox/Simethicone (Aluminum/Magnesium Susp 30 Ml Udc) 30 ml PO Q4H PRN PRN Reason: GI Upset Stop: 12/23/23 19:07 Benztropine Mesylate (Benztropine Mesylate 0.5 Mg Tab) 0.5 mg PO Q12H PRN PRN Reason: EPS Stop: 12/24/23 14:54 Bismuth Subsalicylate (Bismuth Subsalicylate Liqd 236 Ml) 15 ml PO PRN PRN PRN Reason: Loose Stool Stop: 12/23/23 19:07 Haloperidol (Haloperidol 1 Mg Tab) 1 mg PO Q12H PRN PRN Reason: Vocal Tic Stop: 12/24/23 14:41 Hydroxyzine HCl (Hydroxyzine Hcl 25 Mg Tab) 50 mg PO HSZ PRN PRN Reason: Insomnia Stop: 12/23/23 19:07 Last Admin: 11/25/23 02:15 Dose: 50 mg Hydroxyzine HCl (Hydroxyzine Hcl 25 Mg Tab) 25 mg PO Q4H PRN PRN Reason: Anxiety Stop: 12/23/23 19:07 Magnesium Hydroxide (Magnesium Hydroxide Susp 30 Ml Udc) 30 ml PO DAILY PRN PRN Reason: Constipation Stop: 12/23/23 19:07 Miscellaneous (Remove Nicoderm Patch) 1 each N/A DAILY@0859 [facility] Stop: 12/26/23 08:58 Nicotine (Nicotine 21 Mg/24 Hr Tdsy) 21 mg TD QAM [facility] Stop: 12/25/23 12:44 Last Admin: 11/25/23 13:01 Dose: 21 mg Sodium Chloride (Sodium Chloride 0.65% Na Soln 45 Ml (Stearns)) 1 - 2 sprays NA PRN PRN PRN Reason: Nasal Dryness/Congestion Stop: 12/23/23 19:07
[2023-11-26 06:40] VITALS: BP 107/72; PULSE 64
--- NOTE | 2023-11-26 10:15 | Discharge Summary ---
Date of Service November 26, 2023 History of Present Illness From psychiatric consult on 11/22/23: Today I met with the patient and the parents. I also spoke with AXEL Gonzalez who is working with the patient medically. Patient tells me that she overdosed on her fluoxetine yesterday in the early afternoon. She is not sure exactly how many she took but it was "a lot." Physically, she is feeling somewhat better. She describes feeling a little bit dissociated and odd, but she has been able to get up and use the bathroom and is eating and drinking. She cannot identify initially that there was any big stress that caused the overdose. She lives here in [place] in an apartment with 3 roommates. 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 Later during the conversation, she revealed to me that she had a recent break-up with a boyfriend. They had initially broken up back in August and then were back together for a little while and then finally broke up about a week ago. Mother revealed later on that he had cheated on her as well and that she had felt somehow at fault. She says that she is sexually active but is using protection. She is not worried that she is . She is not involved in any organized activities or temple. She is doing online schooling through the [employer] studying business. She does have some supportive friends and family members. She has no major medical issues and no legal issues going on. Parents bring up other stressors as well. She is adopted and -[place] living with a white family. That has been somewhat difficult for her. Parents feel that they have been pressuring her too much to move into adulthood. They also mention that she has been pretty isolative in her apartment and is not as close to her roommates that she would like to be. Patient says that her sleep has been poor with initial and middle insomnia. There is been no nightmares. Appetite is normal. She describes her mood is anxious. She denies anhedonia. Energy has been okay. She says her concentrat ion is normal. She describes some guilt and feels like she is not doing enough for the people in her life. She does feel somewhat hopeless. She cannot really say what led to her overdose and it sounds like she was pretty much "on autopilot" and impulsively did this. She denies any homicidal thoughts. She has a history of self-harm back in high school but none recently. She denies any prior suicide attempts. There is no history of any trauma or abuse. She denies any auditory or visual hallucinations. No ideas of reference. She vapes nicotine and occasionally will drink alcohol, but it sounds like it is rare. She denies any marijuana use or any other illicit substance use. There is no history of any manic episodes. The patient transferred to the psychiatric unit yesterday afternoon. Today I reviewed the chart, received nursing report, and met with the patient. We also had a multidisciplinary treatment team meeting to discuss her care. The patient is here after an overdose of fluoxetine while intoxicated on alcohol in a suicide attempt. Staff report that her mom is pretty worried about her and prefers to have her closer to home. Staff say that she transition to the unit pretty easily yesterday. When I met with her today, she said that she slept well and her appetite is good. She described her mood is "comfortable." She feels well physically. She denies suicidal or homicidal thoughts. She denies hallucinations. She is finding the groups here helpful. She is participating well. We talked a little bit about her longer-term plans. She says that she plans to stay with her best friend and the best friend's boyfriend and [place] after she gets out of the hospital for a little while. She admits that she does need a therapist. She was getting medication management via telehealth. She is also interested in getting out of the hospital as quickly as she can. Physical Exam Psychiatric Patient was alert and cooperative. She was clean and well-groomed. Eye contact was really good today. Speech was normal; no vocal tic. Mood was described as "happy, energized, and excited." Affect is bright. Thought process was logical and goal-directed. There was no evidence of any hallucinations or delusions. Patient denied any suicidal or homicidal thoughts. Memory and concentration were good. No abnormal movements were seen. Gait was normal. Insight and judgment are mildly impaired. Vital Signs (Past 24 Hours) Last Vital Signs Temp 36.7 C 11/26/23 09:31 Pulse 64 11/26/23 09:31 Resp 16 11/26/23 09:31 BP 107/72 11/26/23 09:31 Pulse Ox 100 11/26/23 09:31 O2 Del Method Room Air 11/23/23 20:41 Principal Diagnosis (1) Major depressive disorder, single episode, severe without psychotic features: (2) Suicide attempt by drug ingestion: (3) Alcohol use disorder: (4) Provisional tic disorder: (5) Akathisia: Psychiatric Data Patient was admitted here for safety, further evaluation, and treatment from the medical unit. She took part in our therapeutic milieu, attended groups and activities, maintain good hygiene, and try not to isolate. She fully engaged in the milieu and was very social with her peers. We held off on her fluoxetine during her stay because of the recent overdose, but we restarted it at the time of discharge. She felt very strongly that that medication was helpful for her. She denied suicidal ideation throughout her stay. She had a number of visitors and engaged well. Her affect brightened significantly. Her vocal tic which had started in the emergency department diminished completely. At the time of discharge, we felt she was no longer an acute danger to herself or others. She had a good family meeting and we are going to move forward with discharge today. Day of Discharge Assessment Today the patient voices readiness for discharge. They note improvement in mood and deny thoughts to harm self or others. Thoughts remain organized and they are improved from admission. There is no evidence of psychosis. They agree to take mediations as prescribed and keep follow-up appointments. They are stable for discharge to outpatient level of care. Transition of Care Transition Of Care Record: was reviewed with the patient Advance Directives Advance Directives Information Provided: No Advance Directives: No Mental Health Advance Directive: No Living Will: No Power of Gyro Mechanic: No Advance Directives Reason:: Declines as Mental Health Visit. Suicide Risk Level Suicide Risk Level Comments: At this point, the patient has done so much better and has shown such an improved affect that I feel very comfortable letting her go. She has been denying suicidal thoughts. She is much more goal-directed and thinking about her future. Hospital Course (1) Major depressive disorder, single episode, severe without psychotic features: (2) Suicide attempt by drug ingestion: (3) Alcohol use disorder: (4) Provisional tic disorder: (5) Akathisia: Plan 1. We will continue to follow the patient while she is being medically treated and stabilized. 2. Once she is medically stabilized, she will need to be admitted to a psychiatric hospital. She prefers to do that locally, but parents would prefer for her to be hospitalized locally. It is too early to know what will be lupe ilable once she is medically stable. 3. We will not be restarting the fluoxetine right away and it is not clear if we will continue it or not. We will decide that later. For now, we will not use any psychiatric medications until she is been stable for a little while. 4. She understands that there is still work to be done and I encouraged her to take part in the therapeutic milieu on the psychiatric unit, attend groups and activities, maintain good hygiene, and try not to isolate. 5. Discharge planning will include outpatient medication management and individual therapy. 11/23/23: Now that she is medically stable, we will work on trying to get her placed into an inpatient psychiatric unit. She and her mother are somewhat at odds as to where she will go for her inpatient treatment. We will figure this out. 11/24/23: We will continue with her current level of observation and precautions. I encouraged her to continue to take part in the therapeutic milieu, attend groups and activities, maintain good hygiene, and try not to isolate. She has expressed an interest in filing a 72-hour request for discharge. We will likely restart her fluoxetine around the time of discharge. I think the Haldol she received may have caused a little bit of akathisia. I wrote for a much lower dose at 1 mg every 12 hours as needed for the vocal tic. I told her it is up to her if she wants to use it. I will also write for some Cogentin 0.5 mg twice daily as needed for the akathisia. We will try to get a family meeting set up as quickly as we can. 11/25/23: We are going to continue with her current level of observation and precautions. I encouraged her to keep going to groups and activities to help stay distracted. Today I used a cognitive behavioral approach and we discussed something she can do to try to help with her sleep and I gave her a handout on sleep hygiene which she can read and discuss with me further tomorrow. I also encouraged her to try the hydroxyzine around bedtime tonight to see if that helps her sleep throughout the night. She is okay with restarting her fluoxetine when she gets out of the hospital. We will look towards discharge soon and continue to work on planning. 11/26/23: Patient will discharge home today. She is going to stay with her family for short period of time and eventually come back and stay with a friend. She will continue her fluoxetine 20 mg daily. We have set up an management and therapy here in the [facility]. Today I spent about 37 minutes on the case. This included meeting with the patient, reviewing the chart, nursing report, multidisciplinary treatment team meeting, orders, and documentation. Mental Health & Subst Abuse Tx Psychiatrist Name of Psychiatrist: Basilio Aldrich Psychiatrist's Date Of Appointment With Psychiatric Provider: 12/06/23 Time of Appointment with Psychiatrist: 9:30 AM Psychiatric Appointment Comment: [address] [facility] [id number] Psychiatrist Release of Information: Obtained, Reviewed and Signed Therapist Name of Therapist: [facility] Therapist's Time of Therapist Appointment: They will reach out to you to schedule as soon as possible. Therapy Appointment Comment: [address] [facility] [address], [facility] [address] Post Discharge Appointments Primary Care Physician Name Of Family Doctor/PCP: Salvatore Estrada [facility] Time of Appointment with PCP: Please call if PCP appointment is needed. Provider Appointment Comment: [address] Contact Information Discharge Discharge Address: [place] [id number] Discharge Plan Discharge Items Patient Disposition: Home - Self-Care Reason For Visit: MAJOR DEPRESSIVE DISORDER Discharge Diagnosis: Major depressive disorder, single episode, severe without psychotic features Activity: Resume your previous activity Non-emergency contact: Primary Care Provider, Psychiatrist and Therapist Call non-emergency contact if: you have any medication questions and your symptoms worsen Follow-up/Referrals: PCP,NO [Primary Care Provider] - Diet: Regular Addtl Attending Provider Instructions: SPECIAL CARE INSTRUCTIONS: 1. Follow through with your scheduled aftercare appointments. If unable to keep an appointment, please call to reschedule. 2. Take your medication only as prescribed. Medication should not be changed or stopped without the approval of your doctor. In the event of worsening symptoms or concerns about side effects, contact your doctor immediately. 3. Utilize new healthy coping skills, anger management skills, and stress management skills learned during your hospitalization. Journal feelings and process them with a support person. Identify stressors or situations that may result in relapse, deterioration or inappropriate behaviors and develop a plan to deal with those issues. 4. If your coping skills are ineffective and you are in crisis, contact your outpatient providers for direction. If unable to reach your providers, please call the [facility] CRISIS LINE AT , go to the [facility] walk-in center at [address], [address], [place], or go to the closest Emergency Room. 5. Avoid alcohol and un-prescribed drugs. 6. You have been provided with the Mental Health Advance Directives Pamphlet for your review. 7. Your condition is stable for discharge to outpatient level of care, but recovery is an ongoing process. Ifthoughts to harm yourself or others return, follow the safety plan developed during your stay. Planning for a safe return home includes securing weapons. Our treatment team recommends weaponsbe removed from the home until your outpatient provider reassesses your progress. In rare cases where the items themselvescannot be removed, guns and ammunitionshould be secured separatelyand keys stored by a reliable personoutside of the home. If you were admitted on an involuntary commitment, the police or other legal authorities may be involved in this process. AFTERCARE APPOINTMENTS: * Please call your insurance company prior to your scheduled appointment to confirm your aftercare providers are covered. Take your insurance information to your appointments. WHO TO CALL AND WHEN: Medical Emergencies: For questions or emergencies related to your hospital stay, please contact the Inpatient Behavioral Health Unit at [phone]. A bronze chaser is on-call 19/04 for the Behavioral Health Unit for emergencies At any time you feel your situation is an emergency, you may also call 911 immediately. Pending Studies at Discharge: No Stand-Alone Forms: [facility] [facility], Smoking Cessation Medications and DC Order Prescriptions: New hydroxyzine HCl 25 mg tablet See Rx Instructions .ROUTE .COMPLEX PRN (Reason: insomnia) Qty: 30 0RF Rx Instructions: Take 1-2 tabs nightly as needed for insomnia. fluoxetine 20 mg capsule 20 mg PO DAILY Qty: 30 0RF Discharge Orders: Discharge Order (Routine); Ordered 11/26/23 Ordered By: Judson Riley Jr Admission Data Admit Date/Time: 11/23/23 19:08 Attending Provider: Judson Riley Jr Admit Provider: Judson Riley Jr Primary Care Provider: PCP,NO Other Interventions: Discharge Summary Assessment (RN) Last Done: 11/26/23 09:31 PSY Interdisciplinary Discharge Planning Last Done: 11/26/23 09:32 Coding Level of Care Code 42536 D/C day mgmt > 30 min Diagnoses Major depressive disorder, single episode, severe without psychotic features F32.2 Suicide attempt by drug ingestion T50.902A Alcohol use disorder F10.90 Provisional tic disorder F95.0 Akathisia G25.71
== END 2023-11-26 11:00 | disposition home or self-care (01) | DRG 885 ==
LOC: 3S 19:08
DX: T43.4X5A Adverse effect of butyrophenone and thiothixene neuroleptics, initial encounter; F17.200 Nicotine dependence, unspecified, uncomplicated; F95.0 Transient tic disorder; R45.851 Suicidal ideations; Z63.8 Other specified problems related to primary support group; G25.71 Drug induced akathisia; Z60.0 Problems of adjustment to life-cycle transitions; F32.2 Major depressive disorder, single episode, severe without psychotic features; F10.90 Alcohol use, unspecified, uncomplicated; Z91.51 Personal history of suicidal behavior

== ENCOUNTER 2024-03-25 04:12 | Inpatient (IN) ==
[2024-03-25] MEDS: SODIUM CHLORIDE 0.9% 1,000 ML IV ONE (04:24)
[2024-03-25] MEDS: ONDANSETRON INJ 2 MG/ML 2 ML VIAL IV STA ×2 (04:25→06:51)
[2024-03-25] MEDS: NALOXONE HCL 0.4 MG/1 ML VIAL/CARP ONE (04:26)
[2024-03-25] MEDS: NALOXONE HCL 0.4 MG/1 ML VIAL/CARP IV STA ×2 (04:26→04:31)
[2024-03-25 04:31] LABS: Base Excess VBG -3.3 mEq/L; HCO3 VBG 22 mmol/L; Oxygen Saturation VBG 61.2 %; PCO2 VBG 40 mmHg (38-50); PO2 VBG 38 mmHg; pH VBG 7.35 (7.36-7.41)
[2024-03-25 04:35] LABS: Appearance Urine Clear (Clear); Bilirubin Urine Negative (Negative); Blood Urine Negative (Negative); Color Urine Yellow; Glucose Urine UA Negative (Negative); Ketones Urine Negative (Negative); Leukocyte Esterase Urine Negative (Negative); Nitrite Urine Negative (Negative); Protein Urine Negative (Negative); Specific Gravity Urine 1.004 (1.000-1.030); Urobilinogen Urine Negative (Negative)
[2024-03-25 04:39] LABS: Basophils # (auto) 0.05 K/uL (0.00-0.20); Basophils % (auto) 0.7 %; Eosinophils # (auto) 0.07 K/uL (0.00-0.50); Hemoglobin 10.7 g/dl (12.0-16.0); Immature Granulocytes # (auto) 0.01 K/uL (0.01-0.20); Immature Granulocytes % (auto) 0.1 %; Lymphocytes # (auto) 2.49 K/uL (1.20-3.40); Mean Corpuscular Hemoglobin 23.2 pg (25.0-34.0); Mean Corpuscular Hgb Conc 31.5 g/dL (32.0-36.0); Mean Corpuscular Volume 73.8 fL (80.0-100.0); Mean Platelet Volume 9.4 fL (9.4-12.4); Monocytes # (auto) 0.42 K/uL (0.11-0.59); Monocytes % (auto) 5.7 %; Neutrophils # (auto) 4.28 K/uL (1.40-6.50); Neutrophils % (auto) 58.5 %; Platelet Count 375 K/uL (130-400); RDW Coefficient of Variation 15.4 % (11.5-14.5); Red Blood Count 4.61 M/uL (4.20-5.40); White Blood Count 7.32 K/ul (4.8-10.8)
[2024-03-25 04:49] LABS: Pregnancy Test, Serum Negative (Negative)
[2024-03-25 04:53] LABS: Albumin Globulin Ratio 1.4 (0.9-2); Albumin Level 4.7 gm/dl (3.4-5.0); BUN Creatinine Ratio 15.8 (10-20); Bilirubin,Total 0.3 mg/dl (0.2-1.0); Calcium 9.3 mg/dl (8.6-10.3); Creatinine Clr Calc Pharmacy 86.5 ml/min; Est GFR (Non-African American) 112.1 ml/min; Globulin 3.4 gm/dl (2.5-4.0); Potassium 3.6 mmol/L (3.5-5.1); Total Protein 8.1 gm/dl (6.0-8.3)
[2024-03-25 04:55] LABS: Amphetamines+Metham, Urine Neg (Neg); Barbiturates, Urine Neg (Neg); Benzodiazepine, Urine Neg (Neg); Cocaine, Urine Neg (Neg); Fentanyl, Urine Neg (Neg); MDMA (Ecstacy), Urine Neg (Neg); Marijuana, Urine Neg (Neg); Methadone, Urine Neg (Neg); Opiate, Urine Neg (Neg); Phencyclidine, Urine Neg (Neg)
[2024-03-25 04:55] LABS: Acetaminophen 141 ug/ml (10-30); Salicylate < 3.0 mg/dl (3.0-30)
[2024-03-25] MEDS ORDERED: STAT IV/IM STA (05:23)
[2024-03-25] MEDS ORDERED: AcetylCYSTEINE IV 21 HR REGIMEN (>40KG) IV STA (05:23)
--- NOTE | 2024-03-25 05:46 | Emergency Department Note ---
Impression & Plan Tylenol overdose, Alcohol overdose, Suicide attempt by drug ingestion ED Provider Note NAME: ERINN ZAMBRANO AGE: 19 SEX: F : 2005 ARRIVES VIA: Walk-In INFORMANT: Patient, ED PROVIDER(S): Kim Mckinney MD CHIEF COMPLAINT: Unresponsive HPI: This is a 19-year-old female presenting for unresponsive episode. Patient is brought in by her roommate who states that they found her with 15 minutes prior having slight convulsions and hours went to stimuli. Patient reportedly had overdose of Prozac around October. Today they were out drinking and noted that she got to the bathroom and then she was found shortly afterwards. They do not think she used any recreational drugs such as opiates or marijuana. She currently is not responding to painful stimuli or voice. ROS: Unable to obtain PHYSICAL EXAMINATION: General: Unresponsive Head: Normocephalic and atraumatic Eyes: Normal inspection, 4 mm reactive pupils Ear, nose, throat: Normal external exam Neck: Normal range of motion Respiratory: lungs clear to auscultation bilaterally Cardiovascular: Regular rate/rhythm, no murmur GI: soft, nontender, no guarding or rebound Extremities: No external swelling Neuro: Occasional convulsive episodes Skin: Warm, dry, and intact MEDICAL DECISION MAKING: This is a 19-year-old female sent for unresponsive episode. Patient is also having convulsive episodes. Does not appear consistent with seizure however. Roommate says that ever since she had the overdose on Prozac she has had these episodes of convulsions and they are just more pronounced today but not significantly different. Patient has reassuring vital signs, normotensive, no tachycardia, breathing on her own at rate of 12-16, satting 90% on room air, temperature is within normal limits. Patient is fairly unresponsive at this time, does only minimally respond to painful stimuli after short while. -At this time will do broad workup including head CT to rule out any intracranial process -Will do screening lab work, CBC, BMP, LFTs, lipase, lactic acid, UDS -Patient's lab work is actually reassuring without any significant abnormalities on her CBC or BMP. -VBG normal limits -Lactic acid is elevated 2.8. -Patient has a significant elevated Tylenol level as well as an alcohol level of 83.8 -UDS otherwise negative -Patient is more awake upon reexamination, she does not tell me about her Tylenol use but does moan and talk to her roommate. She tells her roommate that she took Tylenol for a headache but cannot tell me when or how much. Roommate is doubtful of the information and thinks that she may take more than she is letting on. -Due to unclear timeline, elevated, will, consider NAC protocol. Discussed with Poison Control Center who agrees about NAC protocol at this time due to elevated Tylenol level and unclear overdose. -CT read delayed due to [employer], upon my initial read I do not see any large areas of mass or bleeding -Patient radiology read reveals no acute process in the brain -Will admit patient to hospitalist, Dr. Hummel consulted Differential diagnosis: Opiate overdose, polypharmacy, serotonin syndrome, alcohol intoxication, intracranial hemorrhage, traumatic injury ER treatment provided: See below Diagnostics interpreted by me: ECG: ECG independently interpreted by me with normal sinus rhythm, rate of 75, right axis deviation, normal ND, normal QRS, normal QTc, no ST segment elevations consistent with STEMI criteria Cardiac Monitoring: An order was placed for continuous cardiac monitoring. The monitor shows a rate of 76 with sinus rhythm. Laboratory studies: As stated above and show below. Imaging studies: See below. Critical Care Note: I have personally spent 65 minutes of critical care time in the direct management of this patient. This includes bedside care, interpretation of diagnostic studies, and testing, discussion with consultants, patient, and family members, and other required patient management activities. This 65 minutes is in excess of all separately billable procedures. Past Med/Surg History Problem List (Updated 03/25/24 @ 06:55 by Kim Mckinney MD) Alcohol overdose (Acute) Tylenol overdose (Acute) Akathisia Provisional tic disorder Alcohol use disorder Suicide attempt by drug ingestion (Acute) Major depressive disorder, single episode, severe without psychotic features Medical History (Updated 03/25/24 @ 06:55 by Kim Mckinney MD) Toxic metabolic encephalopathy Suicide gesture Social History Smoking Status: Current every day smoker Second Hand Exposure: No; Do You Dip or Chew Tobacco: No; Hx Alcohol Use: Yes Alcohol type: beer, wine and hard liquor Hx Substance Use: No Preferred Language: Tamazight Communication Ability: Effective 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 Beliefs That Will Affect Care: None Current Living Situation: Family Feels Safe at Home: Yes Gender Identity: Female Assistive Devices: None Allergies Allergies Allergy/AdvReac Type Severity Reaction Status Date / Time No Known Allergies Allergy Verified 11/21/23 18:18 Home Meds Previous Rx's Medication Instructions Recorded fluoxetine 20 mg capsule 20 mg PO DAILY #30 caps 11/26/23 hydroxyzine HCl 25 mg tablet See Rx Instructions .Route 11/26/23 .COMPLEX PRN insomnia #30 tabs Results & Data (ED) Vital Signs Vital Signs - 24 hr 03/25/24 04:14 03/25/24 04:15 03/25/24 04:24 Temperature Temperature Source Pulse Rate 81 75 72 Pulse Rate [Apical] Pulse Rate from SpO2 Sensor 75 69 Respiratory Rate 18 19 Respiratory Effort / Characteristics Respiratory Depth Respiratory Pattern Blood Pressure 111/71 107/70 Blood Pressure [Left Arm] Blood Pressure Mean 84 82 Blood Pressure Mean [Left Arm] Blood Pressure Position [Left Arm] Pulse Oximetry 99 98 Oxygen Delivery Method Sepsis Recent Fever Within 48 Hours Sepsis New/Unexplained Change in Mental Status Sepsis Action Taken by Nursing 03/25/24 04:45 03/25/24 04:47 03/25/24 05:00 Temperature 36.6 C Temperature Source Oral Pulse Rate 66 78 Pulse Rate [Apical] Pulse Rate from SpO2 Sensor 69 Respiratory Rate 13 20 Respiratory Effort / Characteristics Respiratory Depth Respiratory Pattern Blood Pressure 109/70 97/69 L Blood Pressure [Left Arm] Blood Pressure Mean 83 78 Blood Pressure Mean [Left Arm] Blood Pressure Position [Left Arm] Pulse Oximetry 98 99 Oxygen Delivery Method Sepsis Recent Fever Within 48 Hours No Sepsis New/Unexplained Change in Mental Status No Sepsis Action Taken by Nursing No Action Required 03/25/24 05:30 03/25/24 06:30 Temperature Temperature Source Pulse Rate 70 Pulse Rate [Apical] 76 Pulse Rate from SpO2 Sensor Respiratory Rate 14 18 Respiratory Effort / Characteristics Non-Labored Spontaneous Respiratory Depth Normal Respiratory Pattern Regular Blood Pressure 98/62 L Blood Pressure [Left Arm] 94/71 L Blood Pressure Mean 74 Blood Pressure Mean [Left Arm] 78 Blood Pressure Position [Left Arm] Lying Pulse Oximetry 99 96 Oxygen Delivery Method Room Air Sepsis Recent Fever Within 48 Hours Sepsis New/Unexplained Change in Mental Status Sepsis Action Taken by Nursing Laboratory Data 03/25/24 04:19 03/25/24 04:19 Lab Results 03/25/24 03/25/24 03/25/24 Range/Units 04:19 04:20 04:30 WBC 7.32 (4.8-10.8) K/ul RBC 4.61 (4.20-5.40) M/uL Hgb 10.7 L (12.0-16.0) g/dl Hct 34.0 L (37.0-47.0) % MCV 73.8 L (80.0-100.0) fL MCH 23.2 L (25.0-34.0) pg MCHC 31.5 L (32.0-36.0) g/dL RDW Std Deviation 41.0 (36.4-46.3) fL RDW Coeff of Kim 15.4 H (11.5-14.5) % Plt Count 375 (130-400) K/uL MPV 9.4 (9.4-12.4) fL Immature Gran % (Auto) 0.1 % Neut % (Auto) 58.5 % Lymph % (Auto) 34.0 % Russell % (Auto) 5.7 % Eos % (Auto) 1.0 % Baso % (Auto) 0.7 % Neut # (Auto) 4.28 (1.40-6.50) K/uL Lymph # (Auto) 2.49 (1.20-3.40) K/uL Russell # (Auto) 0.42 (0.11-0.59) K/uL Eos # (Auto) 0.07 (0.00-0.50) K/uL Baso # (Auto) 0.05 (0.00-0.20) K/uL Immature Gran # (Auto) 0.01 (0.01-0.20) K/uL VBG pH 7.35 L (7.36-7.41) VBG pCO2 40 (38-50) mmHg VBG pO2 38 mmHg VBG HCO3 22 mmol/L VBG O2 Saturation 61.2 % VBG Base Excess -3.3 mEq/L Sodium 136 (136-145) mmol/L Potassium 3.6 (3.5-5.1) mmol/L Chloride 105 (98-107) mmol/L Carbon Dioxide 20 L (21-32) mmol/L Anion Gap 11 (3-11) BUN 12 (6-23) mg/dl Creatinine 0.76 (0.6-1.2) mg/dl Est Cr Clr Drug Dosing 86.5 ml/min Est GFR ( Amer) 130.0 ml/min Est GFR (Non-Af Amer) 112.1 ml/min BUN/Creatinine Ratio 15.8 (10-20) Glucose 120 H (70-99(Fasting)) mg/dl POC Glucose 109 H (70-99) mg/dl Lactate 2.8 H* (0.4-2.0) mmol/L Calcium 9.3 (8.6-10.3) mg/dl Total Bilirubin 0.3 (0.2-1.0) mg/dl AST 14 (13-39) U/L ALT 7 (7-52) U/L Alkaline Phosphatase 58 (34-104) U/L Total Protein 8.1 (6.0-8.3) gm/dl Albumin 4.7 (3.4-5.0) gm/dl Globulin 3.4 (2.5-4.0) gm/dl Albumin/Globulin Ratio 1.4 (0.9-2) HCG, Qual Negative (Negative) Urine Color Yellow Urine Appearance Clear (Clear) Urine pH 6.0 (4.5-7.5) Ur Specific [place] 1.004 (1.000-1.030) Urine Protein Negative (Negative) Urine Glucose (UA) Negative (Negative) Urine Ketones Negative (Negative) Urine Blood Negative (Negative) Urine Nitrite Negative (Negative) Urine Bilirubin Negative (Negative) Urine Urobilinogen Negative (Negative) Ur Leukocyte Esterase Negative (Negative) Salicylates < 3.0 L (3.0-30) mg/dl Urine Opiates Screen Neg (Neg) Ur Methadone, Qual Neg (Neg) Urine Fentanyl Screen Neg (Neg) Acetaminophen 141 H (10-30) ug/ml Urine Barbiturates Neg (Neg) Ur Phencyclidine (PCP) Neg (Neg) U Amphetamin/Meth Scrn Neg (Neg) MDMA (Ecstasy) Screen Neg (Neg) U Benzodiazepines Scrn Neg (Neg) Ur Cocaine Metabolite Neg (Neg) U Marijuana (THC) Screen Neg (Neg) Ethyl Alcohol mg/dL 83.8 H (<10.0) mg/dl Administered Medications Discontinued Medications Sodium Chloride (Nss) 1,000 mls @ 999 mls/hr IV .Q1H1M ONE Stop: 03/25/24 05:20 Last Infusion: 03/25/24 05:22 Dose: Infused Documented By: Admin: 03/25/24 04:24 Dose: 999 mls/hr Documented By: NICK Acetylcysteine 7,020 mg/ (Dextrose) 235.1 mls @ 200 mls/hr IV ONCE ONE; Protocol Stop: 03/25/24 06:33 Last Admin: 03/25/24 05:51 Dose: 200 mls/hr Documented By: DEBBIE Naloxone HCl (Naloxone Hcl 0.4 Mg/1 Ml Vial/Carp) Confirm Administered Dose 0.4 mg .ROUTE .STK-MED ONE Stop: 03/25/24 04:17 Last Admin: 03/25/24 04:26 Dose: Not Given Documented By: NICK Naloxone HCl (Naloxone Hcl 0.4 Mg/1 Ml Vial/Carp) 0.4 mg IV NOW STA Stop: 03/25/24 04:25 Last Admin: 03/25/24 04:26 Dose: 0.4 mg Documented By: NICK Naloxone HCl (Naloxone Hcl 0.4 Mg/1 Ml Vial/Carp) 0.4 mg IV NOW STA Stop: 03/25/24 04:32 Last Admin: 03/25/24 04:31 Dose: 0.4 mg Documented By: AMAN Ondansetron HCl (Ondansetron Inj 2 Mg/Ml 2 Ml Vial) 4 mg IV NOW STA Stop: 03/25/24 04:20 Last Admin: 03/25/24 04:25 Dose: 4 mg Documented By: NICK Ondansetron HCl (Ondansetron Inj 2 Mg/Ml 2 Ml Vial) 4 mg IV NOW STA Stop: 03/25/24 06:47 Last Admin: 03/25/24 06:51 Dose: 4 mg Documented By: Imaging Data Radiologist's Impression: Head CT 03/25/24 04:19 Exam(s): CT HEAD Without Contrast EXAM: CT Head Without Intravenous Contrast CLINICAL HISTORY: Reason for exam: unresponsive. TECHNIQUE: Axial computed tomography images of the head/brain without intravenous contrast. CTDI is 38.56 mGy and DLP is 625.8 mGy-cm. Automated exposure control was utilized for the study. A dose lowering technique was utilized adhering to the principles of ALARA. COMPARISON: No relevant prior studies available. FINDINGS: Brain: Unremarkable. No hemorrhage. No significant white matter disease. No edema. Ventricles: Unremarkable. No ventriculomegaly. Bones/joints: Unremarkable. No acute fracture. Soft tissues: Unremarkable. Sinuses: Unremarkable as visualized. No acute sinusitis. Mastoid air cells: Unremarkable as visualized. No mastoid effusion. IMPRESSION: Normal head/brain CT. Electronically signed by: Ciro Rodgers MD 03/25/24 06:15 AM Discharge Plan Visit Data Chief Complaint: Seizure Stated Complaint: SEIZURE ED Provider: Kim Mckinney Discharge Problem: Tylenol overdose, Alcohol overdose, Suicide attempt by drug ingestion Forms Stand Alone Forms: [email or web address] Prescriptions Prescriptions: No Action hydroxyzine HCl 25 mg tablet See Rx Instructions .ROUTE .COMPLEX PRN (Reason: insomnia) Qty: 30 0RF Rx Instructions: Take 1-2 tabs nightly as needed for insomnia. fluoxetine 20 mg capsule 20 mg PO DAILY Qty: 30 0RF Referrals Referrals: PCP,NO [Primary Care Provider] -
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
--- NOTE | 2024-03-25 06:16 | CT Scan Report ---
Exam(s): CT HEAD Without Contrast EXAM: CT Head Without Intravenous Contrast CLINICAL HISTORY: Reason for exam: unresponsive. TECHNIQUE: Axial computed tomography images of the head/brain without intravenous contrast. CTDI is 38.56 mGy and DLP is 625.8 mGy-cm. Automated exposure control was utilized for the study. A dose lowering technique was utilized adhering to the principles of ALARA. COMPARISON: No relevant prior studies available. FINDINGS: Brain: Unremarkable. No hemorrhage. No significant white matter disease. No edema. Ventricles: Unremarkable. No ventriculomegaly. Bones/joints: Unremarkable. No acute fracture. Soft tissues: Unremarkable. Sinuses: Unremarkable as visualized. No acute sinusitis. Mastoid air cells: Unremarkable as visualized. No mastoid effusion. IMPRESSION: Normal head/brain CT. Electronically signed by: Ciro Rodgers MD 03/25/24 06:15 AM
[2024-03-25 07:28] LABS: Basophils # (auto) 0.04 K/uL (0.00-0.20); Basophils % (auto) 0.7 %; Eosinophils # (auto) 0.03 K/uL (0.00-0.50); Eosinophils % (auto) 0.5 %; Hematocrit (blood only) 29.4 % (37.0-47.0); Hemoglobin 9.1 g/dl (12.0-16.0); Immature Granulocytes # (auto) 0.01 K/uL (0.01-0.20); Immature Granulocytes % (auto) 0.2 %; Lymphocytes # (auto) 2.45 K/uL (1.20-3.40); Lymphocytes % (auto) 42.6 %; Mean Corpuscular Volume 74.4 fL (80.0-100.0); Mean Platelet Volume 9.4 fL (9.4-12.4); Monocytes # (auto) 0.29 K/uL (0.11-0.59); Neutrophils # (auto) 2.93 K/uL (1.40-6.50); Platelet Count 320 K/uL (130-400); RDW Coefficient of Variation 15.2 % (11.5-14.5); Red Blood Count 3.95 M/uL (4.20-5.40); White Blood Count 5.75 K/ul (4.8-10.8)
[2024-03-25 07:30] LABS: Alanine Aminotransferase 8 U/L (7-52); Albumin Globulin Ratio 1.4 (0.9-2); Albumin Level 3.8 gm/dl (3.4-5.0); Alkaline Phosphatase 40 U/L (34-104); Anion Gap 11 (3-11); Aspartate Aminotransferase 11 U/L (13-39); BUN Creatinine Ratio 14.8 (10-20); Bilirubin,Total 0.2 mg/dl (0.2-1.0); Blood Urea Nitrogen 8 mg/dl (6-23); Calcium 7.8 mg/dl (8.6-10.3); Carbon Dioxide 19 mmol/L (21-32); Chloride 109 mmol/L (98-107); Creatine Kinase 69 U/L (26-192); Creatinine Clr Calc Pharmacy 121.8 ml/min; Est GFR (African American) > 150.0 ml/min; Est GFR (Non-African American) 134.9 ml/min; Globulin 2.8 gm/dl (2.5-4.0); Glucose 148 mg/dl (70-99(Fasting)); Potassium 3.7 mmol/L (3.5-5.1); Sodium 139 mmol/L (136-145); Total Protein 6.6 gm/dl (6.0-8.3)
--- NOTE | 2024-03-25 07:47 | XRay Report ---
XR chest 1V portable CLINICAL HISTORY: unresponsive COMPARISON STUDY: Chest radiograph November 21, 2023. FINDINGS: Lung volumes are normal. Lungs are clear. There is no pneumothorax or pleural effusion. Car diac size is normal. Mediastinal contours are normal. There is no evidence for pulmonary edema. IMPRESSION: No acute cardiopulmonary findings. ACT 112: Negative or not required by law. Electronically signed by: Marcus Peters M.D. 03/25/2024 7:46 AM
[2024-03-25] MEDS ORDERED: LORazepam 1 MG in SYRINGE 0.5 ML IV PRN (09:42)
[2024-03-25 10:08] LABS: Basophils # (auto) 0.03 K/uL (0.00-0.20); Basophils % (auto) 0.6 %; Eosinophils # (auto) 0.02 K/uL (0.00-0.50); Eosinophils % (auto) 0.4 %; Immature Granulocytes # (auto) 0.01 K/uL (0.01-0.20); Immature Granulocytes % (auto) 0.2 %; Lymphocytes # (auto) 1.64 K/uL (1.20-3.40); Lymphocytes % (auto) 33.7 %; Mean Corpuscular Hemoglobin 22.9 pg (25.0-34.0); Mean Corpuscular Volume 73.8 fL (80.0-100.0); Mean Platelet Volume 9.2 fL (9.4-12.4); Monocytes # (auto) 0.31 K/uL (0.11-0.59); Monocytes % (auto) 6.4 %; Neutrophils # (auto) 2.86 K/uL (1.40-6.50); Neutrophils % (auto) 58.7 %; Platelet Count 311 K/uL (130-400); RDW Coefficient of Variation 15.1 % (11.5-14.5); RDW Standard Deviation 40.4 fL (36.4-46.3); Red Blood Count 3.93 M/uL (4.20-5.40); White Blood Count 4.87 K/ul (4.8-10.8)
[2024-03-25 10:30] LABS: Alanine Aminotransferase 7 U/L (7-52); Albumin Globulin Ratio 1.4 (0.9-2); Albumin Level 3.8 gm/dl (3.4-5.0); Alkaline Phosphatase 39 U/L (34-104); Anion Gap 10 (3-11); Aspartate Aminotransferase 12 U/L (13-39); Bilirubin,Total 0.2 mg/dl (0.2-1.0); Blood Urea Nitrogen 7 mg/dl (6-23); Calcium 7.9 mg/dl (8.6-10.3); Carbon Dioxide 19 mmol/L (21-32); Chloride 108 mmol/L (98-107); Creatinine Clr Calc Pharmacy 121.5 ml/min; Est GFR (African American) > 150.0 ml/min; Est GFR (Non-African American) 134.9 ml/min; Globulin 2.8 gm/dl (2.5-4.0); Glucose 118 mg/dl (70-99(Fasting)); Potassium 3.8 mmol/L (3.5-5.1); Sodium 137 mmol/L (136-145); Total Protein 6.6 gm/dl (6.0-8.3)
[2024-03-25 10:33] LABS: INR 1.2 (0.9-1.1); Partial Thromboplastin Time 27 Seconds (21-31); Prothrombin Time 12.6 Seconds (9.0-12.0)
[2024-03-25] MEDS: THIAMINE HCL 100 MG in SYRINGE 9 ML IV SCH (10:48)
[2024-03-25] MEDS: FOLIC ACID 1 MG in SYRINGE 9.8 ML IV SCH (10:48)
[2024-03-25] MEDS: LACTATED RINGER'S 1,000 ML IV SCH (10:49)
--- NOTE | 2024-03-25 12:02 | Hospitalist Progress Note ---
"Date of Service March 25, 2024 Assessment & Plan (1) Tylenol overdose: (2) Alcohol overdose: (3) Alcohol use disorder: (4) Major depressive disorder, single episode, severe without psychotic features: Plan Emilia is a 19F w/ PMH of MDD w/ psychotic features, prior suicide attempt with Prozac overdose, alcohol use disorder, akathisia, and tic disorder who presented after being found convulsing at home by her friends. Patient had not been taking her Prozac for 2 weeks prior to this event. Plan to discuss 201 versus 302 once patient is awake. Acetaminophen Overdose - Hemodynamically stable, somnolent but arousable - Acetaminophen level 141 on arrival. - Aminotransferases wnl - Labs with non-anion gap metabolic acidosis which may be related to acetaminophen overdose - Acetylcysteine ordered per protocol - LR ordered @ 80 cc/hr - Follow Acetaminophen level q6h - Neuro checks w/ GCS ordered Q4H, discontinue when alert - Continue to monitor labs Alcohol Overdose | Alcohol Use Disorder - EToH level 80+ on presentation - AWSS protocol ordered, Ativan PRN - Thiamine and Folate ordered - Fluids as above Convulsions - Witnessed by friends prior to arrival - No tongue biting, post-ictal state, or incontinence - No recurrence - CT Head negative - Plan as above Mental Health | MDD w/ Psychotic Features - Patient w/ history of suicide attempt where patient overdosed on Prozac - Patient notes she stopped taking her Fluoxetine/Hydroxyzine 2 weeks ago - Psychiatry consulted - Once patient is awake, will discuss 201 versus 302 Microcytic anemia - Hgb of 9 in am labs. Hgb in 10/2023 was 12.2 - MCV in 70s - Will order iron studies to evaluate - Monitor am labs Code: Full Diet: NPO, IVF @ 80 ml/hr DVT: SCDs Dispo: PCU/tele Consults: Psych Admission and Anticipated Discharge Date Admission Date: March 25, 2024 Supervising Physician Co-Signing Physician Notes Attending attestation Pt seen and examined in concert with Dr. Plasencia. In agreement with the documented findings as noted in the resident documentation with any exceptions or additions as noted here. Resting in bed, somnolent but conversant. On examination, S1/S2 nl RRR no MCG. CTAB. Abd NT/ND BS+ve, CNII-XII grossly intact Acetaminophen overdose in the setting of etOH use - poison control consult - trend CMP, CBC. Thiamine, folate, AWSS protocol. MDD with psychotic features, h/o suicide attempt - psychiatry consult - 1:1. Patient self-d/c'd psychiatric medications 2 wks ago without notifying parents/care team per family/friend Microcytic anemia - trend CBC. Iron profile today. Else see resident documentation as noted. Subjective Patient was asleep at the time of evaluation. Spoke with her friend who was at bedside in the ED and stated that patient and her friends had been out the night before and had drunk alcohol, then returned home and went to the bathroom alone. After this, she was found by her friend on the floor after taking multiple Tylenol. The only other medication on that medication cabinet was cold medicine but friend states it is unlikely she took that since these are individually packaged pills. Briefly woke up later in the morning when parents arrived and spoke with them, but then went back to sleep. No other concerns. Review of Systems Review of Systems: As per HPI. Physical Exam Physical Exam: Gen: NAD, disheveled, asleep Resp:Non-labored, no wheezing/rhonchi/rales, CTAB CV:RRR, normal S1/S2, no M/R/G Abd: Soft, non-distended Extr: 2+ dp bilaterally, no edema Skin: No rashes lesions or erythema Results & Data Results & Data Vital Signs (Past 12 Hours) Vital Signs Temp Pulse Pulse Resp BP BP Pulse Ox 03/25/24 09:55 36.9 C 67 14 136/79 99 03/25/24 09:44 03/25/24 09:42 36.9 C 68 18 136/79 99 03/25/24 06:30 87 17 94/71 L 94 03/25/24 06:30 76 18 94/71 L 96 03/25/24 05:30 70 14 98/62 L 99 03/25/24 05:00 78 20 97/69 L 99 03/25/24 04:47 36.6 C 03/25/24 04:45 66 13 109/70 98 03/25/24 04:24 72 19 107/70 98 03/25/24 04:15 75 18 111/71 99 03/25/24 04:14 81 O2 Del Method 03/25/24 09:55 Room Air 03/25/24 09:44 Room Air 03/25/24 09:42 Room Air 03/25/24 06:30 Room Air 03/25/24 06:30 Room Air 03/25/24 05:30 03/25/24 05:00 03/25/24 04:47 03/25/24 04:45 03/25/24 04:24 03/25/24 04:15 03/25/24 04:14 Resident Activity Tracking Resident Involvement: Resident Care Provided Care Provided: Adult [facility] Medicine"
[2024-03-25 12:53] LABS: Iron 11 mcg/dl (35-150); Total Iron Binding Cap Calc 413 mcg/dl (250-450); Transferrin (FE) Percent Satur 3 % (15-50); Unsaturated Iron Binding Cap 402 mcg/dl (155-355)
--- NOTE | 2024-03-25 18:00 | Electrocardiogram Report ---
Test Reason : Blood Pressure : / mmHG Vent. Rate : 075 BPM Atrial Rate : 075 BPM P-R Int : 140 ms QRS Dur : 078 ms QT Int : 376 ms P-R-T Axes : 079 090 064 degrees QTc Int : 419 ms Poor data quality, interpretation may be adversely affected Normal sinus rhythm Rightward axis Borderline ECG When compared with ECG of 22-NOV-2023 18:18, Nonspecific T wave abnormality no longer evident in Inferior leads Nonspecific T wave abnormality no longer evident in Anterolateral leads Confirmed by Fran Anderson ([id number]) on 03/25/2024 6:00:39 PM Referred By: REFERRED SELF Confirmed By:Fran Anderson
--- NOTE | 2024-03-25 19:09 | Billing Data ---
Date of Service March 25, 2024 Coding Level of Care Code 63187 INT INP/OBS CARE
--- NOTE | 2024-03-25 19:23 | Electrocardiogram Report ---
Test Reason : Blood Pressure : / mmHG Vent. Rate : 071 BPM Atrial Rate : 071 BPM P-R Int : 132 ms QRS Dur : 082 ms QT Int : 420 ms P-R-T Axes : 063 086 055 degrees QTc Int : 456 ms Normal sinus rhythm Normal ECG When compared with ECG of 25-MAR-2024 04:15, No significant change was found Confirmed by Fran Anderson ([id number]) on 03/25/2024 7:23:13 PM Referred By: REFERRED SELF Confirmed By:Fran Anderson
[2024-03-26 03:16] LABS: Albumin Level 3.4 gm/dl (3.4-5.0); Bilirubin Direct 0.1 mg/dl (0-0.2); Bilirubin,Total 0.4 mg/dl (0.2-1.0); Total Protein 5.8 gm/dl (6.0-8.3)
[2024-03-26 03:27] LABS: INR 1.2 (0.9-1.1); Prothrombin Time 12.4 Seconds (9.0-12.0)
[2024-03-26 06:23] LABS: Hematocrit (blood only) 27.6 % (37.0-47.0); Hemoglobin 8.6 g/dl (12.0-16.0); Mean Corpuscular Hemoglobin 23.3 pg (25.0-34.0); Mean Corpuscular Hgb Conc 31.2 g/dL (32.0-36.0); Mean Corpuscular Volume 74.8 fL (80.0-100.0); Mean Platelet Volume 9.5 fL (9.4-12.4); Platelet Count 276 K/uL (130-400); RDW Coefficient of Variation 15.4 % (11.5-14.5); RDW Standard Deviation 41.9 fL (36.4-46.3); Red Blood Count 3.69 M/uL (4.20-5.40); White Blood Count 5.04 K/ul (4.8-10.8)
[2024-03-26 07:11] LABS: Alanine Aminotransferase 6 U/L (7-52); Albumin Globulin Ratio 1.4 (0.9-2); Albumin Level 3.3 gm/dl (3.4-5.0); Alkaline Phosphatase 32 U/L (34-104); Anion Gap 4 (3-11); Aspartate Aminotransferase 10 U/L (13-39); BUN Creatinine Ratio 9.3 (10-20); Bilirubin,Total 0.4 mg/dl (0.2-1.0); Blood Urea Nitrogen 5 mg/dl (6-23); Calcium 8.1 mg/dl (8.6-10.3); Carbon Dioxide 23 mmol/L (21-32); Chloride 109 mmol/L (98-107); Est GFR (African American) > 150.0 ml/min; Est GFR (Non-African American) 134.9 ml/min; Globulin 2.3 gm/dl (2.5-4.0); Glucose 105 mg/dl (70-99(Fasting)); Potassium 3.3 mmol/L (3.5-5.1); Sodium 136 mmol/L (136-145); Total Protein 5.6 gm/dl (6.0-8.3)
[2024-03-26] MEDS: POTASSIUM CHLORIDE 20 MEQ/15 ML UDC PO SCH (09:43)
--- NOTE | 2024-03-26 10:20 | Discharge Summary ---
"Date of Service March 26, 2024 Admission HPI Per Admitting Provider Emilia is a 19F w/ PMH of MDD w/ psychotic features, prior suicide attempt, alcohol use disorder, akathisia, and tic disorder who presented after being found convulsing at home by her friends. Friend remains at bedside and notes that around 3:30 her boyfriend awakened her noting that Emilia was in the bathroom convulsing. She states that they had been out at the bar drinking the evening prior, but did not see her ingest any other substances. Friend notes that she did not throw up prior to arrival at the hospital. Patient is somnolent, but arousable to verbal cues. She states that she has a headache and that she has been off her home medications for two weeks. Patient unable to stay awake. No additional history available from patient. Admission Exam Per Admitting Provider Gen: NAD, disheveled, strong EtOH odor HEENT: Supple, no LAD, dry mucous membranes Resp:Non-labored, no wheezing/rhonchi/rales, CTAB CV:RRR, normal S1/S2, no M/R/G Abd: Soft, non-distended, no TTP, normoactive bowels, no masses Extr: 2+ dp bilaterally, no edema Neuro: AO x ?, somnolent, follows simple commands, moves UE/LE symmetrically Skin: No rashes lesions or erythema Principal Diagnosis Acetaminophen overdose Discharge Exam Gen: AAOx3, afebrile, calm, NAD Resp:Non-labored, no wheezing/rhonchi/rales, CTAB CV:RRR, normal S1/S2, no M/R/G Abd: Soft, non-distended, non-tender Extr: no swelling or calf tenderness in b/l LE Skin: No rashes lesions or erythema Discharge Data Allergies Allergy/AdvReac Type Severity Reaction Status Date / Time No Known Allergies Allergy Verified 11/21/23 18:18 Consultations 03/25/24 05:51 ED Decision to Admit Stat 03/25/24 06:12 Consult Psychiatry Routine Ordered Studies 03/25/24 04:19 CT head/brain wo con Stat Hospital Course (1) Tylenol overdose: (2) Alcohol overdose: (3) Alcohol use disorder: (4) Major depressive disorder, single episode, severe without psychotic features: Plan Emilia is a 19F w/ PMH of MDD w/ psychotic features, prior suicide attempt with Prozac overdose, alcohol use disorder, akathisia, and tic disorder who presented after being found convulsing at home by her friends. Patient had not been taking her Prozac for 2 weeks prior to this event. Patient with mild nausea but no other symptoms. LFTs have returned to normal level and acetaminophen level in normal range. Patient currently medically stable and fit to be discharged. MDD w/ psychotic features and Suicide attempt Acetaminophen/Alcohol Overdose - Hemodynamically stable - Acetaminophen level < 3 today - LFTs normal - Non-anion gap acidosis resolved and CMP only remarkable for mild hypokalemia (3.3). Ordered PO replacement. - s/p Acetylcysteine per protocol - Patient back to baseline and only has residual nausea. Found to be medically stable for discharge. - Psychiatry evaluated patient and state no criteria for inpatient psychiatric hospitalization. Recommending discharge back home with parents and close PCP f/u (please refer to their note for more details). Advised continued use of Prozac. Mental Health | MDD w/ Psychotic Features -- Chronic - Patient w/ history of suicide attempt where patient overdosed on Prozac - Patient notes she stopped taking her Fluoxetine/Hydroxyzine 2 weeks ago - See above Alcohol Overdose | Alcohol Use Disorder - EToH level 80+ on presentation - No signs of withdrawal since time of admission - Thiamine and Folate ordered and may be continued after discharge Convulsions -- Resolved - Witnessed by friends prior to arrival - No tongue biting, post-ictal state, or incontinence - No recurrence Microcytic anemia -- New finding, stable - Hgb of 9 in am labs. Hgb in 10/2023 was 12.2 - MCV in 70s - iron studies suggestive of iron deficiency as a cause, maybe related to recent menstrual period - Will order PO ferrous sulfate for management after discharge Total Time Total Time Spent Total Time Spent (In Minutes): As per attending attestation Discharge Plan Discharge Items Patient Disposition: Home - Self-Care Reason For Visit: TYLENOL/ALCOHOL OVERDOSE Discharge Diagnosis: Acetaminophen/Alcohol overdose Activity: Per Instructions section Non-emergency contact: Primary Care Provider Call non-emergency contact if: your symptoms worsen and your temperature is above 101 Follow-up/Referrals: PCP,NO [Primary Care Provider] - Diet: Regular Addtl Attending Provider Instructions: You were admitted due to acetaminophen (Tylenol) and alcohol overdose which lead to your liver being affected and you having a seizure at home. We treated you with fluids and the antidote for acetaminophen that is called Acetylcysteine, and your liver enzymes went back to normal range and the acetaminophen cleared your system. Now that you are medically stable, we will be discharging you back home. Please make sure to continue taking you Prozac as was advised by your Doctor. We strongly encourage you to follow up closely with your primary care provider and therapist after discharge. Due to low iron that has lead to anemia (low blood count), we have added Ferrous Sulfate (iron tablets) to help your blood count (hemoglobin) increase by essentially giving your body the ingredient it needs to make more red blood cells. Please take one tablet by mouth one time a day every other day (Wednesday, Wednesday, and Wednesday). This medication may cause constipation, therefore you can use laxatives such as Miralax if you need to. A discharge summary will be sent to your primary care physician to ensure continuity of care. Please bring this discharge summary with you to your next office appointment so that your provider can review it at that time. Follow-up appointments: Make a follow-up appointment with your PCP within the next week. It is very important that you follow up with them shortly after discharge from the hospital. Keep all your follow-up appointments as already scheduled. If you cannot make an appointment, notify your provider. Medications: Your medication list has been reviewed and reconciled upon discharge to ensure accuracy and continuity of care. An updated list of all your medications is included with your hospital discharge paperwork. Please review this list cl osely, and make note of any changes. If you have any issues filling these prescriptions, please call [phone] and ask to leave a message for Dr. Plasencia. Take your medications as instructed; do not skip a dose of your medicines. Make sure all of your doctors know every medicine you are taking (including gnvc-dof-moemgdr medicines, vitamins, and supplements). Call your primary care provider before taking any new medicines (including over- the-counter medicines, vitamins, and supplements), because some of these may interact with your current medications, or may make your symptoms worse. Tell your primary care provider if you cannot afford your medications. CONTACT YOUR PRIMARY CARE PROVIDER if you experience any of the following: Worsening of symptoms Fever, chills, or fatigue Difficulty following your treatment plan, or difficulty taking medications CALL 911 OR GO TO THE EMERGENCY DEPARTMENT if you experience any of the following: Sudden, severe abdominal pain or nausea/vomiting Severe chest pain, or chest pain that radiates (moves) to your jaw or arm Sudden, severe shortness of breath or difficulty breathing Thank you for allowing us to participate in your care. Pending Studies at Discharge: No Stand-Alone Forms: [facility], Smoking Cessation Medications and DC Order Prescriptions: New ferrous sulfate 325 mg (65 mg iron) tablet 325 mg PO Q OTHER DAY Qty: 30 0RF Continued fluoxetine 20 mg capsule 20 mg PO DAILY Qty: 30 0RF hydroxyzine HCl 25 mg tablet 25 - 50 mg PO HS PRN (Reason: insomnia) Rx Instructions: Take 1-2 tabs nightly as needed for insomnia. Discharge Orders: Discharge Order (Routine); Ordered 03/26/24 Ordered By: Elin Plasencia Admission Data Admit Date/Time: 03/25/24 06:12 Attending Provider: Aakash Mckeon Admit Provider: Toshia Anderson Primary Care Provider: PCP,NO Other Providers: Kassandra Phelps; Nolan Contreras; Judson Riley Jr; Shireen Kate; Raven Shields; Arnoldo Ortiz; Markos Loaiza Supervising Physician Co-Signing Physician Notes Attending attestation Pt seen and examined in concert with Dr. Plasencia. In agreement with the documented findings as noted in the resident documentation with any exceptions or additions as noted here. Resting comfortably in bed without acute complaint at time of examination. On examination, S1/S2 nl RRR no MCG. CTAB. Abd NT/ND BS+ve Acetaminophen overdose - levels reduced and LFTs without elevation at time of discharge. Consider repeat CMP on follow up evaluation Alcohol use - counseling re: impact of alcohol use on medications MDD with h/o psychotic features, h/o suicidality - psychiatric evaluation - per psychiatric evaluation, inpatient care not presently indicated. Recommend resumption of home psychiatric regimen previously prescribed, follow up with primary care and psychiatric care team for ongoing management. Else see resident documentation as noted. Total attending physician time spent with this patient's care on the day of discharge: 40 minutes Resident Activity Tracking Resident Involvement: Resident Care Provided Care Provided: Adult [facility] Medicine"
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
== END 2024-03-26 17:28 | disposition home or self-care (01) | DRG 918 ==
LOC: SUATTDRO → ED 04:12 → SUATTDRO 06:12 → 2E 06:12
DX: E87.6 Hypokalemia; T43.596A Underdosing of other antipsychotics and neuroleptics, initial encounter; F17.290 Nicotine dependence, other tobacco product, uncomplicated; T39.1X2A Poisoning by 4-Aminophenol derivatives, intentional self-harm, initial encounter; Z79.899 Other long term (current) drug therapy; T43.226A Underdosing of selective serotonin reuptake inhibitors, initial encounter; F32.2 Major depressive disorder, single episode, severe without psychotic features; T51.0X2A Toxic effect of ethanol, intentional self-harm, initial encounter; G25.71 Drug induced akathisia; Z91.51 Personal history of suicidal behavior; Z91.128 Patient's intentional underdosing of medication regimen for other reason; F95.9 Tic disorder, unspecified; F12.10 Cannabis abuse, uncomplicated; F10.10 Alcohol abuse, uncomplicated; R56.9 Unspecified convulsions; D50.9 Iron deficiency anemia, unspecified; R40.0 Somnolence; E87.20 Acidosis, unspecified; Y90.4 Blood alcohol level of 80-99 mg/100 ml